=== PATIENT | male | born 1990 | race Caucasian/White ===

== ENCOUNTER 2024-09-12 14:59 | Outpatient (CLI) | payer OTHER, SELFPAY ==
--- NOTE | ~2024-09-12 | US_ITS ---
Ultrasound of the left lower extremity CLINICAL HISTORY: Area of palpable concern at the posterior left knee TECHNIQUE: Targeted sonographic imaging of the posterior left knee. Concern was performed. FINDINGS: No solid or cystic lesion identified. No sonographic abnormality seen in the region scanned . IMPRESSION: No sonographic abnormality seen at the area of concern in the posterior left knee. Consider cross-sec tional imaging for further evaluation as indicated. Reviewed, dictated and finalized at location M. IMPRESSION: No sonographic abnormality seen at the area of concern in the posterior left kn ee. Consider cross-sectional imaging for further evaluation as indicated.
== END 2024-09-12 15:00 | disposition home or self-care (01) ==
PROVIDERS: PCP Nurse Practitioner Family; Visit Provider Nurse Practitioner Family
DX: R22.42 Localized swelling, mass and lump, left lower limb (principal)
CPT/HCPCS: 76882

== ENCOUNTER 2024-11-07 01:20 | Day surgery (SDC) | payer OTHER, SELFPAY ==
[2024-10-31 16:00] VITALS: BMI 30.9
--- NOTE | 2024-10-31 16:47 | PC.NURSE ---
Report to the Outpatient Waiting Room, entrance under the green pavilion located off [facility], at 0630 on 11-07-24. Planned Procedure Time: 0830.? Time changes happen often and if your time is changed the preop area will call you the afternoon before. - You and your visitor will be asked to self-screen and do not enter if you have any COVID symptoms. Please call surgeon if you need to reschedule. - A mask is optional within the hospital at this time. Patients may have clear liquids (water, carbonated beverages, clear teas, apple juice) until 3 hours prior to surgery with a maximum of 20 ounces. 0530 - No food from midnight until time of surgery and no smoking, or chewing tobacco (or any form of nicotine). No chewing gum, candy or mints. - Infants may have breast milk until 4 hours before surgery, formula 6 hours prior to surgery. - Children will be allowed to drink immediately following surgery.? If applicable, please bring a bottle or sippy cup to assist with drinking. Juice, water, soda, and popsicles are readily available.? For infants on formula, please bring formula the day of surgery.? Pacifiers are allowed. Take only the following medications with a SIP of water on the morning of surgery: Tylenol if needed DO NOT STOP ANY OF YOUR OTHER PRESCRIPTION MEDICATIONS PRIOR TO SURGERY EXCEPT THE FOLLOWING Hold all vitamins and supplements for 3 days per anesthesiologist. 11-04-24 Please no make-up, nail divehi, hairspray, perfume, deodorant, or body powder the day of surgery.? No jewelry (including any body piercings) or valuables the day of surgery, leave them at home.? Please take a shower or bath the night before, or the morning of, surgery with an antibacterial soap.? Wear comfortable, loose fitting clothing.? Children are encouraged to wear pajamas. - Jewelry must be removed prior to entering the operating room.? Rings and piercings that are not removed may be cut off. - The hospital will not accept responsibility for valuables.? - Please leave all valuables, including medications, at home the day of surgery. If you are going home after surgery, a licensed service car driver must drive you home.? - NO public transportation without another adult if you receive anesthesia. - We recommend that an adult stay with you for 24 hours following discharge. - We also recommend that you do not drive, make important decision, drink alcoholic beverages, or take any drugs that were not prescribed by your health care provider for at least 24 hours after your discharge time. For Pediatric surgeries, we recommend two adults accompany the child home. Follow any additional instructions given to you from your surgeon. Telephone instructions given to Emre Valenzuela and asked if any additional questions and then verbalized understanding. Patient advised to call surgeon office or pre surgery nurse liaison [phone] if any additional questions.
--- NOTE | 2024-11-06 15:29 | PM.IMHP ---
H&P: HPI History of Present Illness Date/Time: 11/06/24 15:29 Chief Complaint: Recurrent tonsillitis snoring adenoid hypertrophy. Patient presents for planned surgical procedure. Review of Systems Review of Systems: All systems reviewed & are unremarkable except as noted in HPI and below PMFSH Past Medical History Medical History (Updated 10/19/24 @ 14:27 by Ruma Menezes NP) Left knee pain Localized swelling, mass and lump, left lower limb Enlarged tonsils Acute bronchitis Mild obstructive sleep apnea Chronic pain Sleep apnea Arthritis Surgical History Surgical History History of nasal surgery Hx of vasectomy 06/17/23 Family History Family History Father Heart disease Grandparent Heart disease Social History Social History Social History: Caffeine-daily Smoking packs per day: 0.5 Smoking cigarettes per day: 10.0 Years smoked: 5 Smoking pack-years: 2.50 Smoking status: Former smoker Tobacco type: cigarettes and smokeless tobacco Smokeless tobacco user: chewing tobacco Second hand tobacco smoke exposure: No Smoking end date: 04/06/14 Alcohol intake: current Alcohol use details: Rarely Substance use: never Substance use type: does not use Do You Feel Safe in your Home?: Yes Lack of Transportation: No Lack of Food: Never True Current Housing: I Have Housing Concerned About Future Housing: No Difficulty Paying Gas/Electric Bills: No Difficulty Paying for Meds: No Currently Unemployed: No Education: Associate Degree Difficulty w/ Childcare or Family Care: No Living arrangements: with family Spiritual care concerns: No Meds Home Medications and Allergies Home Medications ?Medication ?Instructions ?Recorded ?Confirmed ?Type acetaminophen 650 mg PO Q4-6H PRN pain 06/18/23 10/31/24 History vitamin B complex 1 tablet PO DAILY 06/18/23 10/31/24 History cholecalciferol (vitamin D3) 1,000 unit PO DAILY 06/22/24 10/31/24 History methocarbamol 2 tablet PO QID PRN pain 06/22/24 10/31/24 History Allergies Allergy/AdvReac Type Severity Reaction Status Date / Time amoxicillin Allergy Mild ANAPHYLAXIS Verified 10/31/24 15:58 Penicillins Allergy Unknown Skin Verified 10/31/24 15:58 Reaction Exam Narrative: Large tonsils large adenoids Assessment and Plan Assessment and plan (1) Sleep apnea: Code(s): G47.30 - Sleep apnea, unspecified Status: Acute (2) Mild obstructive sleep apnea: Code(s): G47.33 - Obstructive sleep apnea (adult) (pediatric) Status: Acute (3) Enlarged tonsils: Code(s): J35.1 - Hypertrophy of tonsils Status: Acute (4) Adenoid hypertrophy: Code(s): J35.2 - Hypertrophy of adenoids Status: Acute (5) Snoring: Code(s): R06.83 - Snoring Status: Acute (6) Recurrent tonsillitis: Code(s): J03.91 - Acute recurrent tonsillitis, unspecified Status: Acute Plan plan OR tonsillectomy adenoidectomy, extracapsular.For the recurrent tonsillitis and tonsillar hypertrophy sure decision was made to perform tonsillectomy and for the large adenoids adenoidectomy. Risks were discussed including bleeding infection damage to surrounding structures need for further procedures time off work time off school for 2 weeks afterwards. Postoperative bleeding round 5% for an adult with chronic tonsillitis. Chance of . Inherent risk of narcotic use.
[2024-11-07] VITALS (9 sets, daily range): BP systolic 109–141; BP diastolic 64–85; PULSE 56–82; RESP 12–18; TEMP 36.2–36.7; O2SAT 97–100; BMI 31.2
--- OUTSIDE RECORDS SUMMARY | 2024-11-07 01:33 | XMS_ITS | Referral Summary ---
Author Organization [facility] Address [address] [place] [address] Care Team Providers Care Gristmiller Name Role Phone Jasmine Garza MD Primary Care Provider [phone] Allergies Active Allergy Reactions Criticality Noted Date Comments Amoxicillin Anaphylaxis High 09/30/2018 Penicillin Other (See comments) Low 01/31/2022 Throat swelling Medications DULoxetine DR (CYMBALTA) 30 mg capsule 1 capsule (30 mg total) daily 11/22/2021 Active pregabalin (LYRICA) 75 mg capsule 2 (two) times a day 01/16/2022 Active acetaminophen (TYLENOL) 325 mg tablet Take 2 tablets (650 mg total) by mouth 3 (three) times a day Active diclofenac sodium (VOLTAREN) 1 % gel 12/31/2021 Active Active Problems Problem Noted Date Diagnosed Date Intervertebral disc stenosis of neural canal of lumbar region 02/18/2022 Lumbar radiculopathy 02/18/2022 Social History Tobacco Use Types Packs/Day Years Used Date Smoking Tobacco: Former Cigarettes Tobacco Cessation:Counseling Given: Not Answered AUDIT-C Answer Date Recorded Q1: How often do you have a drink containing alc ohol? Monthly or less 05/22/2022 Q2: How many drinks containi ng alcohol do you have on a typical day when you are drinking? 1 or 2 05/22/2022 Q3: How often do you have si x or more drinks on one occasion? Less than monthly 05/22/2022 Sex and Gender Information Value Date Recorded Sex Assigned at Not on file Legal Sex Male 8:20 AM CHIEF INNOVATION OFFICER Gender Identity Male 01/27/2022 2:03 PM CDT Sexual Orientation Straight 01/27/2022 2: 03 PM CDT Last Filed Vital Signs Vital Sign Reading Time Taken Comments Blood Pressure 141/63 05/22/2022 4:44 PM CHIEF INNOVATION OFFICER Pulse 74 05/22/2022 4:44 PM CHIEF INNOVATION OFFICER Temperature 36.6 C (97.8 F) 05/22/2022 3:28 PM CHIEF INNOVATION OFFICER Respiratory Rate 18 05/22/2022 4:44 PM CHIEF INNOVATION OFFICER Oxygen Saturation 96% 05/22/2022 4:44 PM CHIEF INNOVATION OFFICER Inhaled Oxygen Concentration - - Weight 84 kg (185 lb 3 oz) 03/30/2022 9:20 PM CS T Height 162.6 cm (5' 4) 03/30/2022 9:20 PM CHIEF INNOVATION OFFICER Body Mass Index 31.79 03/30/2022 9:20 PM CHIEF INNOVATION OFFICER Plan of Treatment Not on file Goals Goal Patient Goal Type Associated Problems Recent Progress Patient-Stated? Author CCM Chronic Pain Care Plan Chronic Care Management No change(05/22 3:29 PM CHIEF INNOVATION OFFICER) No Carol Steward, [place] Note: Problem: Chronic Pain Goals: 1. Minimize further functional decline 2. Maximize quality of life 3. Control pain Strategies: - Activity/exercise program recommendation - Conservative stepwise pain medicine strategy with multi-disciplinary approach - Recommend healthy lifestyle strategies and compensatory methods as needed Insurance [place] [facility] [place] [facility] [place] Sub[place] Plan / Payer (Ef fective 2014-Present) Name:Ryne Valenzuela Relation to Subscriber:Self Name:Ryne Valenzuela Payer ID:[id number] Group ID:Not on file Type:OTHER GOVERNMENT Address: [address] [place] [id number] [place] [facility] OFF[facility] CARE Care Teams Gristmiller Relationship Specialty Start Date End Date Jasmine Garza MD PCP - General Physical Medicine and Rehabilitation 01/06/22
--- OUTSIDE RECORDS SUMMARY | 2024-11-07 01:33 | XMS_ITS | Clinical Summary ---
Author Organization [facility] [employer] Address [address] [place] [address] Care Team Providers Care Rural Carrier Associate Name Role Phone Gianluca Davila MD Primary Care Provider [phone] Source Comments [facility] [employer],non-christian hospital Affiliates and Associated Physician Practices is amultiple site organization consisting of ambulatory clinics and hospital sitesin [place], [place], [place] and [place]. This disclosure is being madepursuant to the Care Everywhere program and may not contain all information available regarding this patient. Last updated 17.[facility] [employer] Allergies Active Allergy Reactions Criticality Noted Date Comments Amoxicillin Anaphylaxis High 09/30/2018 Medications * Be aware that medications may not be up to date on this document. Alwaysverify current medications with the patient. gabapentin (NEURONTIN) 300 MG capsule Take 300 mg by mouth 2 times daily Active triamcinolone acetonide (KENALOG) 0.1 % ointment Apply to affected area 3 times daily 80 g 09/21/2019 Active predniSONE (DELTASONE) 20 MG tablet Take 60 mg daily x 1 week, then 40 mg daily x 1 week, then 20 mg daily x 1 week. 42 tablet 09/21/2019 Active Family History Medical History Relation Name Comments Hypertension Father Diabetes - Type 2 Paternal Grandmother Relation Name Status Comments Father Alive Paternal Grandmother Social History Tobacco Use Types Packs/Day Years Used Date Smoking Tobacco: Former Cigarettes 0.3 3 2 010 - 2013 Smokeless Tobacco: Former Chew Quit: 2014 Tobacco Cessation:Counseling Given: Yes Alcohol Use Standard Drinks/Week Comments Yes 0 (1 standard drink = 0.6 oz pur e alcohol) occasionally Sex and Gender Information Value Date Recorded Sex Assigned at Not on file Legal Sex Male 4:06 PM CDT Gender Identity Not on file Sexual Orientation Not on file Last Filed Vital Signs Vital Sign Reading Time Taken Comments Blood Pressure 110/79 09/21/2019 3:39 PM CDT Pulse 73 09/21/2019 3:39 PM CDT Temperature 36.6 C (97.9 F) 09/21/2019 3:39 PM CDT Respiratory Rate 14 09/21/2019 3:39 PM CDT Oxygen Saturation 96% 09/21/2019 3:39 PM CDT Inhaled Oxygen Concentration - - Weight 81.6 kg (180 lb) 09/21/2019 3:39 PM CDT Height 162.6 cm (5' 4) 09/21/2019 3:39 PM CDT Body Mass Index 30.9 09/21/2019 3:39 PM CDT Plan of Treatment Health Maintenance Due Date Last Done Comments HIV SCREENING 2005 HEPATITIS C SCREENING 09/08/2008 DTAP/TDAP/TD VACCINES (1 - Tdap) 2009 HEPATITIS B VACCINE (1 of 3 - 19+ 3-dose series) 2009 HPV VACCINE (1 - 3-dose SCDM series) 2017 COVID-19 VACCINE (1 - 2023-2 5 season) 2023 DEPRESSION SCREENING 04/06/2024 INFLUENZA VACCINE (#1) 2024 ZOSTER VACCINE (1 of 2) 2040 HIB VACCINE Aged Out No longer eligi ble based on patient's age to complete this topic MENINGOCOCCAL (Group B) VACC INE SHARED DECISION-MAKING Aged Out No longer eligibl e based on patient's age to complete this topic MENINGOCOCCAL GROUPS A/C/Y/W VACCINE Aged Out No longer eligible b ased on patient's age to complete this topic PNEUMOCOCCAL VACCINE Aged Out No long er eligible based on patient's age to [place] [address] FORMERLY [facility], [facility] Care Teams Rural Carrier Associate Relationship Specialty Start Date End Date Gianluca Davila MD [address] [place], [place] [id number] PCP - General Family Medicine 09/30/18
--- OUTSIDE RECORDS SUMMARY | 2024-11-07 01:33 | XMS_ITS | Clinical Summary ---
Author Organization [facility] Address [address] [place] [address] Care Team Providers Care Market Development Manager Name Role Phone Jasmine Garza MD Primary Care Provider [phone] Allergies Active Allergy Reactions Criticality Noted Date [...] of lumbar region 02/18/2022 Lumbar radiculopathy 02/18/2022 Surgical History Surgery Date Site/Laterality Comments NASAL SEPTUM SURGERY 04/06/2008 - 04/05/2009 Medical History Medical History Date Comments Liver disorder Arthritis Muscle pain Irritability Low back pain Hip pain, bilateral Family History Medical History Relation Name Comments Chronic Pain Father Diabetes Father Heart disease Father Hypertension Father Chronic Pain Other Heart disease Other Diabetes Paternal Grandfather Heart disease Paternal Grandfather Relation Name Status Comments Father Other Paternal Grandfather Social History Tobacco Use Types Packs/Day Years [...] on file Legal Sex Male 8:20 AM [employer] MAINFRAME DEVELOPER Gender Identity Male 01/27/2022 2:03 PM CDT Sexual Orientation Straight 01/27/2022 2: 03 PM CDT Obstetrics History Last Filed Vital Signs Vital Sign Reading Time Taken Comments Blood Pressure 141/63 05/22/2022 4:44 PM IBM MAINFRAME DEVELOPER Pulse 74 05/22/2022 4:44 PM IBM MAINFRAME DEVELOPER Temperature 36.6 C (97.8 F) 05/22/2022 3:28 PM IBM MAINFRAME DEVELOPER Respiratory Rate 18 05/22/2022 4:44 PM IBM MAINFRAME DEVELOPER Oxygen Saturation 96% 05/22/2022 4:44 PM IBM MAINFRAME DEVELOPER Inhaled Oxygen Concentration - - Weight 84 kg (185 lb 3 oz) 03/30/2022 9:20 PM CS T Height 162.6 cm (5' 4) 03/30/2022 9:20 PM IBM MAINFRAME DEVELOPER Body Mass Index 31.79 03/30/2022 9:20 PM IBM MAINFRAME DEVELOPER Plan of Treatment Health Maintenance Due Date Last Done Comments Depression Screening 1990 Hepatitis C Screening 1990 Varicella Vaccines (1 of 2 - 13+ 2-dose series) 09/14/2003 Hepatitis B Screening 2008 Regular Well Visit/Exam 18-64 2008 HPV Vaccines (1 - 3-dose SCD M series) 2017 Covid-19 Vaccine (3 - 2023-2 5 season) 2023 11/27/2020, 11/03/2020 Influenza Vaccine (#1) 2024 01/13/2018 DTaP/Tdap/Td Vaccine (2 - Td or Tdap) 10/25/2030 10/25/2020 Pneumococcal vaccine <65 Aged Out No longer eligible based on patient's age to complete this topic Goals Goal Patient Goal Type Associated Problems Recent Progress Patient-Stated? Author CCM Chronic Pain Care Plan Chronic Care Management No change(05/22 3:29 PM IBM MAINFRAME DEVELOPER) Carol Mckay, [place] Note: Problem: Chronic Pain Goals: 1. Minimize further functional decline 2. Maximize quality of life 3. Control pain Strategies: - Activity/exercise program recommendation - Conservative stepwise pain medicine strategy with multi-disciplinary approach - Recommend healthy lifestyle strategies and compensatory methods as needed Insurance [facility] Care Teams Market Development Manager Relationship Specialty Start Date End Date Jasmine Garza MD PCP - General Physical Medicine and Rehabilitation 01/06/22
--- NOTE | 2024-11-07 07:23 | WPDHPUPDATE1 ---
History and Physical Update Update Date/Time: 11/07/24 07:23 History and Physical has been reviewed, including an updated exam of the patient. There are NO changes in the patient's condition. Risks, benefits, and alternatives have been discussed and questions answered. Patient agrees to proceed with procedure.
[2024-11-07] MEDS: ACETAMINOPHEN 500 MG TABLET 1000 MG PO (07:30)
[2024-11-07] MEDS: LACTATED RINGERS 1,000 ML 30 ML IV CONT (07:30)
--- NOTE | 2024-11-07 08:16 | P.PNAN_ITS ---
Anes - Initial Pre Proc Eval Procedure: Operation Date: 11/07/24 08:30 Proposed Procedures p Tonsillectomy And Adenoidectomy - Grzegorz Mejia MD Date/Time: 11/07/24 08:16 Surgeon: Grzegorz Meija MD Pre Op Diagnosis: chronic tonsillitis, hypertrophy of adenoids Patient Data Age: 34 Gender: M Height: 1.63 m Weight: 82.6 kg Last Vital Signs Temp 36.7 C 11/07/24 07:30 Pulse 62 11/07/24 07:30 BP 124/85 11/07/24 07:30 Pulse Ox 98 11/07/24 07:30 O2 Del Method Room Air 11/07/24 07:30 Allergies Allergy/AdvReac Type Severity Reaction Status Date / Time amoxicillin Allergy Mild ANAPHYLAXIS Verified 11/07/24 07:51 Penicillins Allergy Unknown Skin Verified 11/07/24 07:51 Reaction Home Medications ?Medication ?Instructions ?Recorded ?Confirmed ?Type acetaminophen 650 mg PO Q4-6H PRN pain 06/18/23 10/31/24 History vitamin B complex 1 tablet PO DAILY 06/18/23 10/31/24 History cholecalciferol (vitamin D3) 1,000 unit PO DAILY 06/22/24 10/31/24 History methocarbamol 2 tablet PO QID PRN pain 06/22/24 10/31/24 History Patient hx anesthesia problems: post op nausea/vomiting Family hx anesthesia problems: none Results Review: All pre-operative results and documents have been reviewed as part of the pre- operative evaluation. COUNT INCLUDES THE [facility] Past Medical History Medical History Left knee pain Localized swelling, mass and lump, left lower limb Enlarged tonsils Acute bronchitis Mild obstructive sleep apnea Chronic pain Sleep apnea Arthritis Surgical History Surgical History History of nasal surgery Hx of vasectomy 06/17/23 Family History Family History Father Heart disease Grandparent Heart disease Social History Social History Social History: Caffeine-daily Smoking status: Former smoker Tobacco type: cigarettes Smokeless tobacco user: chewing tobacco Smoking end date: 04/06/13 Alcohol intake: current Alcohol use details: rarely Substance use: never Do You Feel Safe in your Home?: Yes Lack of Transportation: No Lack of Food: Never True Current Housing: I Have Housing Concerned About Future Housing: No Difficulty Paying Gas/Electric Bills: No Difficulty Paying for Meds: No Currently Unemployed: No Education: Associate Degree Difficulty w/ Childcare or Family Care: No Anes - Eval Final PreProcedure Day of Procedure 11/07/24 08:16 Patient weight: obese Heart: regular rate and rhythm Lungs: clear to auscultation Airway: Mallampati scale class II Neurological: alert and oriented Last oral intake: >/= 8 hours ASA classification: III Emergent: no Anesthetic plan: proceed Anesthesia type and monitoring: general ETT and standard monitoring Results Review: All pre-operative results and documents have been reviewed as part of the pre- operative evaluation. Informed Consent: The patient's anesthetic plan and its attendant risks and benefits were discussed with the patient/family/POA. Questions were solicited and answers provided to the satisfaction of the patient/family/POA.
[2024-11-07] MEDS: SCOPOLAMINE 1 MG PATCH 1 PATCH TRANSDERM (08:26)
--- NOTE | 2024-11-07 08:46 | S_PTH ---
PATIENT: Ryne Valenzuela LOC: [facility] U#:[id number] AGE/SX: 34/M ROOM: RE11/07/[address]: Grzegorz Mejia MD : 1990 BED: DIS: 11/07/2024 SPEC #: [id number] RECD: 11/07/24 10:35 STATUS: TIFFANIE REQ #: [id number] MELI: 11/07/24 08:[address]: Grzegorz Mejia DEPT: [facility] Surgical RECD BY: Sybil Patino ENTERED: 11/07/24 10:35 SP TYPE: Surgical OTHR DR: Ruma Menezes APRN Tissues: A - Tonsils Procedures: Gross and Microscopic Level 2
--- NOTE | 2024-11-07 09:18 | W.PM.PROC2 ---
Procedure Note - Detailed Date of Procedure 11/07/24 Pre-op Diagnosis chronic tonsillitis Post-op Diagnosis Same Procedure Performed Tonsillectomy Surgeon Grzegorz Mejia MD Anesthesia General Indications See above Findings Incredibly large scarred in tonsils 5 cc of blood loss, burn to the uvula on the right side minor complication. Description of Procedure Patient identified consent verified the preoperative holding area. Patient brought to the operating. Time-out performed. General anesthesia induced endotracheal tube secured. Patient prepped draped position procedure confirmed 2nd time-out performed. McIvor mouth gag inserted to reveal tonsils described above. They were removed bilaterally in the extracapsular plane using Coblator setting media medium any bleeding was also controlled with Coblator on the cautery setting. In-between tonsils McIvor mouth gag lowered reopened allow blood flow to return to the tongue. Once the tonsils were out Anesthesia Valsalva to ensure no further bleeding. Red rubber catheters were inserted, soft palate suspended anteriorly, no adenoids, red rubber catheters removed. McIvor mouth gag removed. Care the patient back to Anesthesiology I performed all dictated portions procedure no complications patient taken to PACU blood loss 5 cc. Estimated Blood Loss 5 Drains No Packing No Pathology Yes Complications No immediate complications Condition Stable Disposition PACU [facility] Billing Surgery - Charge Forward: Surgery Billing
[2024-11-07] MEDS: fentaNYL CITRATE INJ (*CRX) 100 MCG/2 ML VIAL 25 MCG IV PUSH ×2 (09:50→10:00)
[2024-11-07] MEDS: oxyCODONE HCL (*CRX) 5 MG TAB IR PO (10:25)
== END 2024-11-07 11:13 | disposition home or self-care (01) ==
PROVIDERS: PCP Nurse Practitioner Family; Visit Provider Otolaryngology
PROC: (CPT 42826; principal; 2024-11-07 08:30)
DX: J35.01 Chronic tonsillitis (principal); G89.18 Other acute postprocedural pain; R06.83 Snoring; G47.33 Obstructive sleep apnea (adult) (pediatric); G89.29 Other chronic pain; M19.90 Unspecified osteoarthritis, unspecified site; F17.220 Nicotine dependence, chewing tobacco, uncomplicated; Z98.890 Other specified postprocedural states; E66.9 Obesity, unspecified; Z68.31 Body mass index [BMI] 31.0-31.9, adult; Z82.49 Family history of ischemic heart disease and other diseases of the circulatory system
CPT/HCPCS: 42826; 88302; A9270; J0330; J2250; J2405; J2704; J3010; J7120

== ENCOUNTER → 2024-11-10 10:00 | Outpatient (CLI) | payer OTHER, SELFPAY ==
--- NOTE | ~2024-11-10 | XR_ITS ---
Left Knee Technique: AP, lateral, and oblique views were obtained. Clinical History: Pain Findings: No fracture or dislocation is seen. Osseous alignment is anatomic. Joint spaces are preserv ed without degenerative or erosive change. Soft tissues are unremarkable. No joint effusion is seen. Impression: Unremarkable left knee radiographs. Reviewed, dictated and finalized at [facility]. Impression: Unremarkable left knee radiographs.
--- OUTSIDE RECORDS SUMMARY | 2024-11-10 10:13 | XMS_ITS | Continuity of Care Document ---
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 It does not include entries that were removed or entered in error. Problem Status Onset Date Problem Type Date of Resolution Comments Source Diarrhea Active Condition [facility] Hyperbilirubinemia Active Condition F eb 2021 Entered By: NATALIE STAHL Comment: 05/31/21 ultasound: stable gallbladder polyp no followup imaging indicated [facility] Hyperlipidemia (SCT 91379116) Active Condition [facility] Low Back Pain (SCT 192084483) Active Condition Mar 27, 2020 Entered By: NATALIE STAHL Comment: 02/13/12 lumbar mri: multilevel mild spondylosisNov 21, 2020 Entered By: NATALIE STAHL Comment: 11/21/20 normal bilateral lower extremity nerve conduction study [facility] OA - Osteoarthritis (SCT 642899561) Active Condition [facility] Obesity (SCT 257436952) Active Condition [facility] Past history of procedure Active Condition May 15, 2020 Entered By: NATALIE STAHL Comment: 2008 septoplasty (deviated septal repair)May 15, 2020 Entered By: NATALIE STAHL Comment: 2011 wisdom teeth extractions (2) [facility] Pes planus Active Condition [facility] Tinnitus (SCT 54091844) Active Condition [facility] Vitamin D Deficiency (SCT 5911281) Active Condition [facility] Vaccines Prophylactic Need Against Bacterial Diseases Inactive Condition [facility] NO PSYCHIATRIC DIAGNOSIS OR CONDITION ON AXIS I Inactive Condition [facility] lower back pain chronic Active Condition [facility] visit for: screening exam neurological disorders traumatic brain injury Inactive Condition [facility] PARESIS OF ACCOMMODATION Active Condition [facility] ASTIGMATISM - REGULAR Active Condition [facility] visit for: routine eye exam Inactive Condition [facility] INTERVERTEBRAL DISC DEGENERATION Active Condition [facility] BULGING INTERVERTEBRAL DISC Active Condition [facility] RADICULOPATHY Active Condition [facility] Patient Education - Self-Examination Of Skin Inactive Condition [facility] Patient Education - Alcohol Inactive Condition [facility] Patient Education - Self-Examination Of Testes Inactive Condition [facility] Anticipatory Guidance: Unsafe Sexual Practices Inactive Condition [facility] Patient Education - Dietary Inactive Condition DoD midback pain Active Condition [facility] NICOTINE DEPENDENCE Inactive Condition D oD visit: ears/hearing exam for hearing conservation, treatment Inactive Condition [facility] Other Physical Therapy Inactive Condition [facility] BACK STRAIN LUMBAR Inactive Condition Do D lower back pain Active Condition [facility] Back Muscle Spasm Active Condition [facility] HYPERLIPIDEMIA Active Condition Do[facility] visit for: ears / hearing exam Active Condition [facility] visit for: occupational health / fitness exam Inactive Condition [facility] Patient Education Inactive Condition [facility] UPPER RESPIRATORY INFECTION Inactive Condition [facility] visit for: administrative purpose Inactive Condition [facility] NORMAL PRE-EMPLOYMENT SCREENING EXAMINATION Inactive Condition [facility] Need For Vaccination Hepatitis A Inactive Condition [facility] Need For Vaccination Hepatitis B Inactive Condition [facility] Need For Vaccination Typhoid Inactive Condition [facility] visit for: potential organ / tissue donor Inactive Condition [facility] Need For Prophylactic Antibiotics Inactive Condition [facility] visit for: services physical Inactive Condition [facility] Diagnosis: ICD-10-CM M54.50 Low back pain, unspecified Active Diagnosis 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 Diagnosis: ICD-10-CM E55.9 Vitamin D deficiency, unspecified Active Diagnosis [facility] Diagnosis: ICD-10-CM Z30.09 Encounter for oth general cnsl and advice on contraception Active Diagnosis [facility] Diagnosis: ICD-10-CM G89.4 Chronic pain syndrome Active Diagnosis [facility] Medications Combined list of outpatient medications from Department of Defense and Veterans Affairs facilities.Medications provided include 1) outpatient medications from the last 15 months, and 2) patient-reported medications. Medication Details Route Status Patient Instructions Prescription Expires Prescription Number Last Dispense Date Ordering Provider Order Date Order Qty Source GABAPENTIN (U/D) 300 MG ORAL CAP TAKE ONE CAPSULE BY MOUTH AT BEDTIME FOR PAIN, SLEEP, ANXIETY 05/14/2024 [id number] ELISHAALFCY 2023 30 [facility] GABAPENTIN 300MG CAP TAKE ONE CAPSULE BY MOUTH AT BEDTIME ORAL ACTIVE 02/25/2025 [id number] DOMINIQUESAMEERAA Tulio 2023 30 [facility] GABAPENTIN 300MG CAP TAKE ONE CAPSULE BY MOUTH AT BEDTIME FOR PAIN, SLEEP, ANXIETY ORAL DISCONT INUED 05/14/2024 [id number] MAMIE KEBEDE 2023 30 [facility] KETOCONAZOL E 2 % TOP CREA [15GM] APPLY LIGHTLY TO AFFECTED AREA(S) TWICE A DAY FOR FUNGAL INFECTIO N (EXTERNA L USE ONLY) 08/25/2024 [id number] MADDY TOLEDO 2023 60 [facility] holly KETOCONAZOL E 2% CREAM,TOP APPLY LIGHTLY TO AFFECTED AREA(S) TWICE A DAY FOR FUNGAL INFECTIO N (EXTERNA L USE ONLY) TOPICA L 08/25/2024 [id number] HALEY TOLEDO 2023 60 [facility] METHOCARBAM [place] 500MG TAB TAKE 1-2 TABLETS BY MOUTH AT BEDTIME NEEDED FOR MUSCLE RELAXATI ON ORAL ACTIVE 05/19/2025 [id number] SUMIT MCCANN 2024 60 [facility] Triamcinolo ne Acetonide (Triamcinol one Acetonide Eq.) Cream .1% Topical APPLY LIGHTLY TO AFFECTED AREA(S) TWICE DAILY NEEDED FOR FOOT RASH (EXTERNA L USE ONLY) 08/25/2024 [id number] MADDY TOLEDO 2023 80 [facility] TRIAMCINOLO NE ACETONIDE 0.1% CREAM,TOP APPLY LIGHTLY TO AFFECTED AREA(S) TWICE DAILY NEEDED FOR FOOT RASH (EXTERNA L USE ONLY) TOPICA L 08/25/2024 [id number] HALEY TOLEDO [address] [place] [address] Allergies, Adverse Reactions, Alerts Combined list of allergies from Department of [facility] and Veterans Affairs facilities. It does not include entries that were removed or entered in error. Substance Category Reaction Severity Reaction type Status Date Reported Comments Source AMOXICILLIN Drug allergy (disorder) Unknown active 1 [facility] AMOXICILLIN Drug allergy (disorder) Throat swelling active 1 [facility] AMOXICILLIN Propensity to adverse reactions to drug (finding) Pharyngeal swelling active 1 [facility] PENICILLINS Drug allergy (disorder) Unknown active 1 [facility] Immunizations Combined list of available immunizations from the Department of [facility] and [facility] facilities. Immunization Series Date Given Administered By Site Reaction Lot Number CVX Code Drug Manager Park Status Comments Source INFLUENZA, INJECTABLE, QUADRIVALENT, PRESERVATIVE FREE 2023 FLEX ZARATE LEFT DELTO ID [id number] 150 complet ed Completed Series, [facility] COVID-19 (PFIZER), MRNA, LNP-S, PF, 30 MCG/0.3 ML DOSE 2 2020 208 complet ed [facility] INFLUENZA, UNSPECIFIED FORMULATION 2020 88 complet ed [facility] COVID-19 (PFIZER), MRNA, LNP-S, PF, 30 MCG/0.3 ML DOSE 1 2020 208 complet ed [facility] TDAP 1 2020 115 complet ed HISTORICA L INFORMATI ON - FROM OTHER REGISTRY, [facility] INFLUENZA, INJECTABLE, QUADRIVALENT, PRESERVATIVE FREE 2020 NONE 150 complet ed Completed Series, [facility] TDAP 02/09/ 2021 NONE 115 complet ed Completed Series, [facility] INFLUENZA, INJECTABLE, QUADRIVALENT, PRESERVATIVE FREE 1 2017 150 complet ed HISTORICA L INFORMATI ON - FROM OTHER REGISTRY, [facility] anthrax vaccine 5 2013 [id number] [employer] [place] (MIP) complet ed anthrax vaccine DoD anthrax vaccine 4 2013 [id number] [employer] [place] (MIP) complet ed anthrax vaccine DoD [place] Encephalitis vaccine for intramuscular administratio n 3 2012 [id number] 134 Merck (MSD) complet ed [place] Encephali tis vaccine for intramusc ular administr ation DoD Influenza, seasonal, injectable 0 2012 [id number] 141 7 [employer] (MED) complet ed Influenza , seasonal, injectabl e DoD anthrax vaccine 3 2012 [id number] 24 [employer] [place] ([facility]) complet ed anthrax vaccine DoD typhoid Vi capsular polysaccharid e vaccine 2 2012 [id number] Sanofi Pasteur (PMC) complet ed typhoid Vi capsular polysacch aride vaccine DoD influenza virus vaccine, live, attenuated, for intranasal use 0 2011 [id number] 111 7 [employer] (MED) complet ed influenza virus vaccine, live, attenuate d, for intranasa l use DoD [place] Encephalitis vaccine for intramuscular administratio n 2 2010 UNK 134 [employer] (INT) complet ed [place] Encephali tis vaccine for intramusc ular administr ation DoD influenza virus vaccine, live, attenuated, for intranasal use 0 2010 [id number] 111 Unknown (UNK) comple t ed influenza virus vaccine, live, attenuate d, for intranasa l use DoD anthrax vaccine 2 2010 [id number] (EBS) complet ed anthrax vaccine DoD vaccinia (smallpox) vaccine 0 2010 UNK 75 ([place]) complet ed vaccinia (smallpox ) vaccine DoD vaccinia (smallpox) vaccine 0 2010 [id number] 75 ([place]) complet ed vaccinia (smallpox ) vaccine DoD [place] Encephalitis vaccine for intramuscular administratio n 1 2010 [id number] 134 Sanofi Pasteur (PMC) complet ed [place] Encephali tis vaccine for intramusc ular administr ation DoD anthrax vaccine 1 2010 [id number] 24 [employer] [place] ([facility]) complet ed anthrax vaccine DoD typhoid Vi capsular polysaccharid e vaccine 1 2010 [id number] 1BA 101 [employer] (SKB) complet ed typhoid Vi capsular polysacch aride vaccine DoD hepatitis A and hepatitis B vaccine 3 2010 [id number] 1BA 104 [employer] (SKB) complet ed hepatitis A and hepatitis B vaccine DoD yellow fever vaccine 0 2010 [id number] 37 Sanofi Pasteur (PMC) complet ed yellow fever vaccine DoD poliovirus vaccine, inactivated 0 2009 [id number] 10 Sanofi Pasteur (PMC) complet ed polioviru s vaccine, inactivat ed DoD hepatitis A and hepatitis B vaccine 2 2009 [id number] 5BA 104 [employer] (SKB) complet ed hepatitis A and hepatitis B vaccine DoD pneumococcal polysaccharid e vaccine, 23 valent 0 2009 [id number] 33 Merck (MSD) complet ed pneumococ cecil polysacch aride vaccine, 23 valent DoD hepatitis A and hepatitis B vaccine 1 2009 [id number] 5AA 104 [employer] (SKB) complet ed hepatitis A and hepatitis B vaccine DoD influenza virus vaccine, live, attenuated, for intranasal use 0 2009 [id number] 111 Sanofi Pasteur (PMC) complet ed influenza virus vaccine, live, attenuate d, for intranasa l use DoD tetanus toxoid, reduced diphtheria toxoid, and acellular pertu is vaccine, adsorbed 0 2009 [id number] 115 [employer] (SKB) complet ed tetanus toxoid, reduced diphtheri a toxoid, and acellular pertussis vaccine, adsorbed DoD meningococcal oligosacchari de (groups A, C, Y and W-135) diphtheria toxoid conjugate vaccine (MCV4O) 0 2009 [id number] 136 Sanofi Pasteur (PMC) complet ed meningoco ccal oligosacc haride (groups A, C, Y and W-135) diphtheri a toxoid conjugate vaccine (MCV4O) DoD Results Combined list of recent chemistry, hematology and other laboratory results from Department of Defense and Veterans Affairs, ranging from 15 months to all on record, depending upon the facility. Order Name Results Value Reference Range Date Interpretation Specimen Comments Source METHADONE PANEL (STL) ETHANOL [MASS/VOLUM E] IN URINE Negati vemg/d L 0 - 20 07/14 Specimen Type: URINE Comment: The cut-off value for this test was laboratory developed and its performance characteris tics confirmed by the [facility] laboratory thru method comparison with reference laboratory and medication chart review. The laboratory is regulated under CLIA as qualified to perform high-comple xity testing. This test is used for clinical purposes in conjunction with other laboratory tests. Ordering Provider: SHWETA KEBEDE Report Released Date/Time: Jul 14, 2023 04:09 PM Reporting Lab: [facility] [place] [address] Performing Lab: [facility] METHADONE PANEL (STL) AMPHETAMINE [PRESENCE] IN URINE BY SCREEN METHOD Negati veng/m L 07/14 Specimen Type: URINE Comment: The cut-off value for this test was laboratory developed and its performance characteris tics confirmed by the [facility] laboratory thru method comparison with reference laboratory and medication chart review. The laboratory is regulated under CLIA as qualified to perform high-comple xity testing. This test is used for clinical purposes in conjunction with other laboratory tests. Ordering Provider: SHWETA KEBEDE Report Released Date/Time: Jul 14, 2023 04:09 PM Reporting Lab: [facility] [place] [address] Performing Lab: [facility] METHADONE PANEL (STL) BENZOYLECGO NINE [PRESENCE] IN URINE Negati veng/m L 07/14 Specimen Type: URINE Comment: The cut-off value for this test was laboratory developed and its performance characteris tics confirmed by the [facility] laboratory thru method comparison with reference laboratory and medication chart review. The laboratory is regulated under CLIA as qualified to perform high-comple xity testing. This test is used for clinical purposes in conjunction with other laboratory tests. Ordering Provider: SHWETA KEBEDE Report Released Date/Time: Jul 14, 2023 04:09 PM Reporting Lab: [facility] [place] [address] Performing Lab: [facility] METHADONE PANEL (STL) BENZODIAZEP DENNYS [PRESENCE] IN URINE BY SCREEN METHOD Negati veng/m L 07/14 Specimen Type: URINE Comment: The cut-off value for this test was laboratory developed and its performance characteris tics confirmed by the [facility] laboratory thru method comparison with reference laboratory and medication chart review. The laboratory is regulated under CLIA as qualified to perform high-comple xity testing. This test is used for clinical purposes in conjunction with other laboratory tests. Ordering Provider: SHWETA KEBEDE Report Released Date/Time: Jul 14, 2023 04:09 PM Reporting Lab: [facility] [place] [address] Performing Lab: [facility] METHADONE PANEL (STL) CANNABINOID S [PRESENCE] IN URINE BY SCREEN METHOD Negati veng/m L 07/14 Specimen Type: URINE Comment: The cut-off value for this test was laboratory developed and its performance characteris tics confirmed by the [facility] laboratory thru method comparison with reference laboratory and medication chart review. The laboratory is regulated under CLIA as qualified to perform high-comple xity testing. This test is used for clinical purposes in conjunction with other laboratory tests. Ordering Provider: SHWETA KEBEDE Report Released Date/Time: Jul 14, 2023 04:09 PM Reporting Lab: [facility] [place] [address] Performing Lab: [facility] METHADONE PANEL (STL) METHADONE [PRESENCE] IN URINE Negati veng/m L 07/14 Specimen Type: URINE Comment: The cut-off value for this test was laboratory developed and its performance characteris tics confirmed by the [facility] laboratory thru method comparison with reference laboratory and medication chart review. The laboratory is regulated under CLIA as qualified to perform high-comple xity testing. This test is used for clinical purposes in conjunction with other laboratory tests. Ordering Provider: SHWETA KEBEDE Report Released Date/Time: Jul 14, 2023 04:09 PM Reporting Lab: [facility] [place] [address] Performing Lab: [facility] METHADONE PANEL (STL) OPIATES [PRESENCE] IN URINE BY SCREEN METHOD Negati veng/m L 07/14 Specimen Type: URINE Comment: The cut-off value for this test was laboratory developed and its performance characteris tics confirmed by the [facility] laboratory thru method comparison with reference laboratory and medication chart review. The laboratory is regulated under CLIA as qualified to perform high-comple xity testing. This test is used for clinical purposes in conjunction with other laboratory tests. Ordering Provider: SHWETA KEBEDE Report Released Date/Time: Jul 14, 2023 04:09 PM Reporting Lab: [facility] [place] [address] Performing Lab: [facility] [place] [address] [place] [address] METHADONE PANEL (STL) CREATININE [MASS/VOLUM E] IN URINE 133.4 mg/dL 63.0 - 166.0 07/14 Specimen Type: URINE Comment: The cut-off value for this test was laboratory developed and its performance characteris tics confirmed by the [facility] laboratory thru method comparison with reference laboratory and medication chart review. The laboratory is regulated under CLIA as qualified to perform high-comple xity testing. This test is used for clinical purposes in conjunction with other laboratory tests. Ordering Provider: SHWETA KEBEDE Report Released Date/Time: Jul 14, 2023 04:09 PM Reporting Lab: [facility] [place] [address] Performing Lab: [facility] METHADONE PANEL (STL) OXYCODONE CUTOFF [MASS/VOLUM E] IN URINE FOR SCREEN METHOD Negati veng/m L 07/14 Specimen Type: URINE Comment: The cut-off value for this test was laboratory developed and its performance characteris tics confirmed by the [facility] laboratory thru method comparison with reference laboratory and medication chart review. The laboratory is regulated under CLIA as qualified to perform high-comple xity testing. This test is used for clinical purposes in conjunction with other laboratory tests. Ordering Provider: SHWETA KEBEDE Report Released Date/Time: Jul 14, 2023 04:09 PM Reporting Lab: [facility] [place] [address] Performing Lab: [facility] METHADONE PANEL (STL) BUPRENORPHI NE [PRESENCE] IN URINE Negati veng/m L 07/14 Specimen Type: URINE Comment: The cut-off value for this test was laboratory developed and its performance characteris tics confirmed by the [facility] laboratory thru method comparison with reference laboratory and medication chart review. The laboratory is regulated under CLIA as qualified to perform high-comple xity testing. This test is used for clinical purposes in conjunction with other laboratory tests. Ordering Provider: SHWETA KEBEDE Report Released Date/Time: Jul 14, 2023 04:09 PM Reporting Lab: [facility] [place] [address] Performing Lab: [facility] [address] METHADONE PANEL (STL) FENTANYL [PRESENCE] IN URINE Negati veng/m L 07/14 Specimen Type: URINE Comment: The cut-off value for this test was laboratory developed and its performance characteris tics confirmed by the [facility] laboratory thru method comparison with reference laboratory and medication chart review. The laboratory is regulated under CLIA as qualified to perform high-comple xity testing. This test is used for clinical purposes in conjunction with other laboratory tests. Ordering Provider: SHWETA KEBEDE Report Released Date/Time: Jul 14, 2023 04:09 PM Reporting Lab: [facility] [place] [address] Performing Lab: [facility] [facility] HGA1C HEMOGLOBIN A1C/HEMOGLO BIN.TOTAL IN BLOOD 5.0 4.0 - 6.0 07/14 Specimen Type: BLOOD No comment entered. Ordering Provider: CARINA LY Report Released Date/Time: May 28, 2023 03:36 PM Reporting Lab: [facility] [place] [address] Performing Lab: [facility] TSH (MA-PB) THYROTROPIN [UNITS/VOLU ME] IN SERUM OR PLASMA 1.814 u[IU]/ mL 0.470 - 5.000 07/14 Specimen Type: SERUM No comment entered. Ordering Provider: CARINA LY Report Released Date/Time: May 28, 2023 03:36 PM Reporting Lab: [facility] [place] [address] Performing Lab: [facility] COMPREHEN SIVE METABOLIC PANEL CREATININE [MASS/VOLUM E] IN SERUM OR PLASMA 0.95 mg/dL 0.70 - 1.30 07/14 Specimen Type: PLASMA Comment: No hemolysis noted. Ordering Provider: CARINA LY Report Released Date/Time: May 28, 2023 03:36 PM Reporting Lab: [facility] [place] [address] Performing Lab: [facility] COMPREHEN SIVE METABOLIC PANEL UREA NITROGEN [MASS/VOLUM E] IN SERUM OR PLASMA 13.1 mg/dL 9.0 - 25.0 07/14 Specimen Type: PLASMA Comment: No hemolysis noted. Ordering Provider: CARINA LY Report Released Date/Time: May 28, 2023 03:36 PM Reporting Lab: [facility] [place] [address] Performing Lab: [facility] COMPREHEN SIVE METABOLIC PANEL GLUCOSE [MASS/VOLUM E] IN SERUM OR PLASMA 136 mg/dL 72 - 99 07/14 H Specimen Type: PLASMA Comment: No hemolysis noted. Ordering Provider: CARINA LY Report Released Date/Time: May 28, 2023 03:36 PM Reporting Lab: [facility] [place] [address] Performing Lab: [facility] COMPREHEN SIVE METABOLIC PANEL SODIUM [MOLES/VOLU ME] IN SERUM OR PLASMA 142 meq/L 136 - 145 07/14 Specimen Type: PLASMA Comment: No hemolysis noted. Ordering Provider: CARINA LY Report Released Date/Time: May 28, 2023 03:36 PM Reporting Lab: [facility] [place] [address] Performing Lab: [facility] COMPREHEN SIVE METABOLIC PANEL POTASSIUM [MOLES/VOLU ME] IN SERUM OR PLASMA 4.0 meq/L 3.5 - 5.0 07/14 Specimen Type: PLASMA Comment: No hemolysis noted. Ordering Provider: CARINA LY Report Released Date/Time: May 28, 2023 03:36 PM Reporting Lab: [facility] [place] [address] Performing Lab: [facility] COMPREHEN SIVE METABOLIC PANEL CHLORIDE [MOLES/VOLU ME] IN SERUM OR PLASMA 104 meq/L 98 - 107 07/14 Specimen Type: PLASMA Comment: No hemolysis noted. Ordering Provider: CARINA LY Report Released Date/Time: May 28, 2023 03:36 PM Reporting Lab: [facility] [place] [address] Performing Lab: [facility] COMPREHEN SIVE METABOLIC PANEL CARBON DIOXIDE, TOTAL [MOLES/VOLU ME] IN SERUM OR PLASMA 29 meq/L 22 - 31 07/14 Specimen Type: PLASMA Comment: No hemolysis noted. Ordering Provider: CARINA LY Report Released Date/Time: May 28, 2023 03:36 PM Reporting Lab: [facility] [place] [address] Performing Lab: [facility] COMPREHEN SIVE METABOLIC PANEL CALCIUM [MASS/VOLUM E] IN SERUM OR PLASMA 9.7 mg/dL 8.4 - 10.4 07/14 Specimen Type: PLASMA Comment: No hemolysis noted. Ordering Provider: CARINA LY Report Released Date/Time: May 28, 2023 03:36 PM Reporting Lab: [facility] [place] [address] Performing Lab: [facility] [address] COMPREHEN SIVE METABOLIC PANEL PROTEIN [MASS/VOLUM E] IN SERUM OR PLASMA 7.4 g/dL 6.0 - 8.6 07/14 Specimen Type: PLASMA Comment: No hemolysis noted. Ordering Provider: CARINA LY Report Released Date/Time: May 28, 2023 03:36 PM Reporting Lab: [facility] [place] [address] Performing Lab: [facility] [address] COMPREHEN SIVE METABOLIC PANEL ALBUMIN [MASS/VOLUM E] IN SERUM OR PLASMA 4.5 g/dL 3.4 - 5.0 07/14 Specimen Type: PLASMA Comment: No hemolysis noted. Ordering Provider: CARINA LY Report Released Date/Time: May 28, 2023 03:36 PM Reporting Lab: [facility] [place] [address] Performing Lab: [facility] [address] COMPREHEN SIVE METABOLIC PANEL BILIRUBIN.T OTAL [MASS/VOLUM E] IN SERUM OR PLASMA 1.4 mg/dL 0.2 - 1.2 07/14 H Specimen Type: PLASMA Comment: No hemolysis noted. Ordering Provider: CARINA LY Report Released Date/Time: May 28, 2023 03:36 PM Reporting Lab: [facility] [place] [address] Performing Lab: [facility] [address] COMPREHEN SIVE METABOLIC PANEL ALKALINE PHOSPHATASE [ENZYMATIC ACTIVITY/VO LUME] IN SERUM OR PLASMA 97 U/L 40 - 150 07/14 Specimen Type: PLASMA Comment: No hemolysis noted. Ordering Provider: CARINA LY Report Released Date/Time: May 28, 2023 03:36 PM Reporting Lab: [facility] [place] [address] Performing Lab: [facility] [address] COMPREHEN SIVE METABOLIC PANEL ASPARTATE AMINOTRANSF ERASE [ENZYMATIC ACTIVITY/VO LUME] IN SERUM OR PLASMA 29 U/L 5 - 34 07/14 Specimen Type: PLASMA Comment: No hemolysis noted. Ordering Provider: CARINA YL Report Released Date/Time: May 28, 2023 03:36 PM Reporting Lab: [facility] [place] [address] Performing Lab: [facility] [address] COMPREHEN SIVE METABOLIC PANEL ALANINE AMINOTRANSF ERASE [ENZYMATIC ACTIVITY/VO LUME] IN SERUM OR PLASMA 36 U/L 8 - 40 07/14 Specimen Type: PLASMA Comment: No hemolysis noted. Ordering Provider: CARINA LY Report Released Date/Time: May 28, 2023 03:36 PM Reporting Lab: [facility] [place] [address] Performing Lab: [facility] [address] COMPREHEN SIVE METABOLIC PANEL GLOMERULAR FILTRATION RATE/1.73 SQ M.PREDICTED [VOLUME RATE/AREA] IN SERUM, PLASMA OR BLOOD BY CREATININE- BASED FORMULA (CKD-EPI 2020) 109.06 60 07/14 Specimen Type: PLASMA Comment: No hemolysis noted. Ordering Provider: CARINA LY Report Released Date/Time: May 28, 2023 03:36 PM Reporting Lab: [facility] [place] [address] Performing Lab: [facility] [address] CBC LEUKOCYTES [#/VOLUME] IN BLOOD BY AUTOMATED COUNT 8.6 10*3/u L 3.6 - 11.2 07/14 Specimen Type: BLOOD No comment entered. Ordering Provider: CARINA LY Report Released Date/Time: May 28, 2023 03:36 PM Reporting Lab: [facility] [place] [address] Performing Lab: [facility] [address] CBC ERYTHROCYTE S [#/VOLUME] IN BLOOD BY AUTOMATED COUNT 4.59 10*6/u L 4.10 - 5.70 07/14 Specimen Type: BLOOD No comment entered. Ordering Provider: CARINA LY Report Released Date/Time: May 28, 2023 03:36 PM Reporting Lab: [facility] [place] [address] Performing Lab: [facility] [address] CBC HEMOGLOBIN [MASS/VOLUM E] IN BLOOD 14.5 g/dL 13.1 - 16.8 07/14 Specimen Type: BLOOD No comment entered. Ordering Provider: CARINA LY Report Released Date/Time: May 28, 2023 03:36 PM Reporting Lab: [facility] [place] [address] Performing Lab: [facility] [address] CBC HEMATOCRIT [VOLUME FRACTION] OF BLOOD 41.0 38.2 - 48.4 07/14 Specimen Type: BLOOD No comment entered. Ordering Provider: CARINA LY Report Released Date/Time: May 28, 2023 03:36 PM Reporting Lab: [facility] [place] [address] Performing Lab: [facility] [facility] CBC MCV [ENTITIC VOLUME] BY AUTOMATED COUNT 89.3 fL 80.0 - 100.0 07/14 Specimen Type: BLOOD No comment entered. Ordering Provider: CARINA LY Report Released Date/Time: May 28, 2023 03:36 PM Reporting Lab: [facility] [place] [address] Performing Lab: [facility] [address] CBC MCH [ENTITIC MASS] BY AUTOMATED COUNT 31.6 pg 27.0 - 34.0 07/14 Specimen Type: BLOOD No comment entered. Ordering Provider: CARINA LY Report Released Date/Time: May 28, 2023 03:36 PM Reporting Lab: [facility] [place] [address] Performing Lab: [facility] [address] CBC MCHC [MASS/VOLUM E] BY AUTOMATED COUNT 35.4 g/dL 33.0 - 36.0 07/14 Specimen Type: BLOOD No comment entered. Ordering Provider: CARINA LY Report Released Date/Time: May 28, 2023 03:36 PM Reporting Lab: [facility] [place] [address] Performing Lab: [facility] [address] CBC PLATELETS [#/VOLUME] IN BLOOD BY AUTOMATED COUNT 212 10*3/u L 150 - 400 07/14 Specimen Type: BLOOD No comment entered. Ordering Provider: CARINA LY Report Released Date/Time: May 28, 2023 03:36 PM Reporting Lab: [facility] [place] [address] Performing Lab: [facility] [address] CBC PLATELET MEAN VOLUME [ENTITIC VOLUME] IN BLOOD BY AUTOMATED COUNT 9.2 fL 7.5 - 11.2 07/14 Specimen Type: BLOOD No comment entered. Ordering Provider: CARINA LY Report Released Date/Time: May 28, 2023 03:36 PM Reporting Lab: [facility] [place] [address] Performing Lab: [facility] [address] CBC ERYTHROCYTE DISTRIBUTIO N WIDTH [RATIO] BY AUTOMATED COUNT 12.1 11.8 - 15.1 07/14 Specimen Type: BLOOD No comment entered. Ordering Provider: CARINA LY Report Released Date/Time: May 28, 2023 03:36 PM Reporting Lab: [facility] [place] [address] Performing Lab: [facility] [address] CBC LYMPHOCYTES /100 LEUKOCYTES IN BLOOD BY AUTOMATED COUNT 07/14 Specimen Type: BLOOD No comment entered. Ordering Provider: CARINA LY Report Released Date/Time: May 28, 2023 03:36 PM Reporting Lab: [facility] [place] [address] Performing Lab: [facility] [address] CBC MONOCYTES/1 00 LEUKOCYTES IN BLOOD BY AUTOMATED COUNT 07/14 Specimen Type: BLOOD No comment entered. Ordering Provider: CARINA LY Report Released Date/Time: May 28, 2023 03:36 PM Reporting Lab: [facility] [place] [address] Performing Lab: [facility] [place] [id number] CBC NEUTROPHILS /100 LEUKOCYTES IN BLOOD BY AUTOMATED COUNT 65 07/14 Specimen Type: BLOOD No comment entered. Ordering Provider: CARINA LY Report Released Date/Time: May 28, 2023 03:36 PM Reporting Lab: [facility] [place] [address] Performing Lab: [facility] [address] CBC EOSINOPHILS /100 LEUKOCYTES IN BLOOD BY AUTOMATED COUNT 3 07/14 Specimen Type: BLOOD No comment entered. Ordering Provider: CARINA LY Report Released Date/Time: May 28, 2023 03:36 PM Reporting Lab: [facility] [place] [address] Performing Lab: [facility] [address] CBC BASOPHILS/1 00 LEUKOCYTES IN BLOOD BY AUTOMATED COUNT 0 07/14 Specimen Type: BLOOD No comment entered. Ordering Provider: CARINA LY Report Released Date/Time: May 28, 2023 03:36 PM Reporting Lab: [facility] [place] [address] Performing Lab: [facility] [address] CBC LYMPHOCYTES [#/VOLUME] IN BLOOD BY AUTOMATED COUNT 1.90 10*3/u L 0.77 - 4.50 07/14 Specimen Type: BLOOD No comment entered. Ordering Provider: CARINA LY Report Released Date/Time: May 28, 2023 03:36 PM Reporting Lab: [facility] [place] [address] Performing Lab: [facility] [address] CBC MONOCYTES [#/VOLUME] IN BLOOD BY AUTOMATED COUNT 0.78 10*3/u L 0.19 - 0.80 07/14 Specimen Type: BLOOD No comment entered. Ordering Provider: CARINA LY Report Released Date/Time: May 28, 2023 03:36 PM Reporting Lab: [facility] [place] [address] Performing Lab: [facility] [address] CBC NEUTROPHILS [#/VOLUME] IN BLOOD BY AUTOMATED COUNT 5.57 10*3/u L 2.10 - 8.00 07/14 Specimen Type: BLOOD No comment entered. Ordering Provider: CARINA LY Report Released Date/Time: May 28, 2023 03:36 PM Reporting Lab: [facility] [place] [address] Performing Lab: [facility] [address] CBC EOSINOPHILS [#/VOLUME] IN BLOOD BY AUTOMATED COUNT 0.27 10*3/u L 0.00 - 0.60 07/14 Specimen Type: BLOOD No comment entered. Ordering Provider: CARINA LY Report Released Date/Time: May 28, 2023 03:36 PM Reporting Lab: [facility] [place] [address] Performing Lab: [facility] [address] CBC BASOPHILS [#/VOLUME] IN BLOOD BY AUTOMATED COUNT 0.02 10*3/u L 0.00 - 0.20 07/14 Specimen Type: BLOOD No comment entered. Ordering Provider: CARINA LY Report Released Date/Time: May 28, 2023 03:36 PM Reporting Lab: [facility] [place] [address] Performing Lab: [facility] [place] [id number] LIPID PANEL (STL) CHOLESTEROL [MASS/VOLUM E] IN SERUM OR PLASMA 215 mg/dL 0 - 200 07/14 H Specimen Type: PLASMA Comment: No hemolysis noted. Ordering Provider: CARINA LY Report Released Date/Time: May 28, 2023 03:36 PM Reporting Lab: [facility] [place] [address] Performing Lab: [facility] [address] LIPID PANEL (L) TRIGLYCERID E [MASS/VOLUM E] IN SERUM OR PLASMA 227 mg/dL 0 - 150 07/14 H Specimen Type: PLASMA Comment: No hemolysis noted. Ordering Provider: CAIRNA LY Report Released Date/Time: May 28, 2023 03:36 PM Reporting Lab: [facility] [place] [address] Performing Lab: [facility] [address] LIPID PANEL (L) CHOLESTEROL IN LDL [MASS/VOLUM E] IN SERUM OR PLASMA BY CALCULATION 135 mg/dL 07/14 Specimen Type: PLASMA Comment: No hemolysis noted. Ordering Provider: CARINA LY Report Released Date/Time: May 28, 2023 03:36 PM Reporting Lab: [facility] [place] [address] Performing Lab: [facility] [address] LIPID PANEL (STL) CHOLESTEROL IN HDL [MASS/VOLUM E] IN SERUM OR PLASMA 35 mg/dL 40 07/14 L Specimen Type: PLASMA Comment: No hemolysis noted. Ordering Provider: CARINA LY Report Released Date/Time: May 28, 2023 03:36 PM Reporting Lab: [facility] [place] [address] Performing Lab: [facility] [address] VITAMIN D, 25-HYDROX Y 25-HYDROXYV ITAMIN D3 [MASS/VOLUM E] IN SERUM OR PLASMA 29.8 ng/mL 30 - 96 07/14 L Specimen Type: SERUM No comment entered. Ordering Provider: CARINA LY Report Released Date/Time: May 28, 2023 03:36 PM Reporting Lab: [facility] [place] [address] Performing Lab: [facility] [address] B12 COBALAMIN (VITAMIN B12) [MASS/VOLUM E] IN SERUM OR PLASMA 415 pg/mL 213 - 816 07/14 Specimen Type: SERUM No comment entered. Ordering Provider: CARINA LY Report Released Date/Time: May 28, 2023 03:36 PM Reporting Lab: [facility] [place] [address] Performing Lab: [facility] [address] Vital Signs Combined list of inpatient and outpatient Vital Signs from Department of Defense and Veterans Affairs, ranging from 12 months to all on record, depending upon the facility. Vital Sign Value Date Comments Source SYSTOLIC BLOOD PRESSURE 107 12/01/2023 14:19:01 [facility] DIASTOLIC BLOOD PRESSURE 72 12/01/2023 14:19:01 [facility] PULSE OXIMETRY 97 12/01/2023 14:19:01 [facility] WEIGHT 184 12/01/2023 14:19:01 [facility] BMI 32 kg/m2 12/01/2023 14:19:01 [facility] PAIN 3 12/01/2023 14:19:01 [facility] HEIGHT 64 12/01/2023 14:19:01 [facility] TEMPERATURE 98.4 12/01/2023 14:19:01 [facility] PULSE 72 12/01/2023 14:19:01 [facility] RESPIRATION 18 12/01/2023 14:19:01 [facility] Encounters Combined list of: 1) Encounters from Department of Veterans Affairs facilities going backup to the last 18 months, not all VA inpatient encounters are included; 2) Encounters from the Department of Defense facilities going backup to 280 months. Location Location Details Encounter Type Encounter Number Reason For Visit Attending Provider ADM Date DC Date Status Disposition Source [facility] D Optometry ) OUTPATIENT [id number] recruit exam WIL JAIME 02/20 Released w/o Limitations [facility](M CRD Optomet ry) [facility](MCR D Recruit Sick Call) OUTPATIENT [id number] PATSeptember R. 03/14 Released w/o Limitations [facility](M CRD Recruit Sick Call) [facility](MCR D Recruit Sick Call) OUTPATIENT [id number] September R. 03/21 Released w/o Limitations [facility](M CRD Recruit Sick Call) [facility] D Recruit Sick Call) [facility] [id number] [facility]. [facility] w/o Limitations [facility] Recruit Sick Call) [facility] D Recruit Sick Call) [facility] [id number] [facility]/10 Released w/o Limitations [facility] CRD Recruit Sick Call) [facility] [place] , [place]([facility]) OUTPATIENT [id number] KARMEN Leslie 06/03 Released w/o Limitations [place] [facility] Amparo kim([facility]- [place]) OUTPATIENT [id number] [place] JAZMÍN Brown 09/04 Released w/o Limitations [facility] [place]) [place]) OUTPATIENT [id number] (clb 4) adminis JAIMEE Camacho 10/11 Released w/o Limitations [place]) [place]) OUTPATIENT [id number] HEADACH E/BETZAIDA ROBLES (H&HS) DEMOND DEE 03/04 Released with Work/Duty Limitations [place] [place](O ccupation al Medicine) OUTPATIENT [id number] 720,,,, ,[place] RENEE BILLINGSLEY 03/31 Released w/o Limitations [place] ([facility]) [place](H earing [facility] ion) OUTPATIENT [id number] 503,,,, ,[place] NIKOLAS DOYLE 04/01 [place]ased w/o Limitations [facility] ([facility]earin g Conserv ation) [place](O ccupation al Medicine) OUTPATIENT [id number] 720,,,, ,PJM CINDY CARRERO 04/09 Released w/o Limitations [place] ([facility]up[facility] Medicin [facility]) [place]) OUTPATIENT [id number] BACK PAIN,xL AST WEEK (H&HS) JENNIFER MUNIZ 07/13 Released with Work/Duty Limitations [place] [place]) OUTPATIENT [id number] F/U BACK PAIN (H&HS) JENNIFER MUNIZ 07/19 Released with Work/Duty Limitations [place] [place]) OUTPATIENT [id number] Notes Entered by: KARMEN CARRERO 22 Jul 2011 0938 ------- ------- ------- ------- -- BOBBY- Low Back JAVED SALMON 07/21 Released with Work/Duty Limitations [place] [place] OUTPATIENT [id number] Notes Entered by: VERO WILEY 05 Aug 2011 0728 ------- ------- ------- ------- -- MAW - Lower Back JENNY JOELLE K 08/03 Released with Work/Duty Limitations [place] [place] OUTPATIENT [id number] lower back pain SHARMILA UMANZOR [place] 08/25 Released w/o Limitations [place] [place] OUTPATIENT [id number] DIANA JOHNS 09/01 Released w/o Limitations [place] [place]) OUTPATIENT [id number] BECCA ÁLVAREZ 09/04 Released w/o Limitations [place]) [place] OUTPATIENT [id number] SANTOS DOMINGUEZ 09/06 Released w/o Limitations [place] [place] OUTPATIENT [id number] MAKI GRAJEDA 09/08 Released w/o Limitations [place] [facility] [place]) OUTPATIENT [id number] SVEN OHARA 09/13 Released w/o Limitations [place] [place]) OUTPATIENT [id number] SVEN OHARA 09/15 Released w/o Limitations [place] [place]) OUTPATIENT [id number] Notes Entered by: ERICH ESPINOZA 17 Sep 2011 1045 ------- ------- ------- ------- -- HC TRAININ G (H&HS) [place]ION [place] 09/16 Released w/o Limitations [place] [place]) OUTPATIENT [id number] F/U BACK PAIN (H&HS) JENNIFER MUNIZE 09/23 Released w/o Limitations [place] [place]) OUTPATIENT [id number] Back Pain (H&HS) CIERA GALICIAQUE 09/29 Released with Work/Duty Limitations [place] [place]) OUTPATIENT [id number] RE-EVAL OF BACK PROBLEM (H&HS) [place] 10/20 Released with Work/Duty Limitations [place] [place] OUTPATIENT [id number] SHARMILA UMANZOR 10/21 Released w/o Limitations [place] [place] OUTPATIENT [id number] LBP SVEN OHARA 10/25 Released w/o Limitations [place] [place] OUTPATIENT [id number] SVEN OHARA 10/27 Released w/o Limitations [place] [place]) OUTPATIENT [id number] SVEN OHARA 11/01 Released w/o Limitations [place] [place] OUTPATIENT [id number] SVEN OHARA 11/05 Released w/o Limitations [place] [place]) OUTPATIENT [id number] MAKI GRAJEDA 11/12 Released w/o Limitations [place] [place] OUTPATIENT [id number] SVEN OHARA 11/19 Released w/o Limitations [facility] ) [facility](P hysical Therapy Clinic) OUTPATIENT [id number] [facility] ED2 ABAD TRAN 11/23 Released w/o Limitations [facility] (Physic al Therapy Clinic) [facility]) OUTPATIENT [id number] MED REFILL ([facility]) LIZZIE GONZALEZ 01/06 Released w/o Limitations [facility] ([facility]) [facility]) OUTPATIENT [id number] VELVET BLANCO 01/08 Released w/o Limitations [facility] ([facility]) [facility]) OUTPATIENT [id number] SEVERE BACKPAI N ([facility]) [facility] LION RAPHAEL 01/19 Released w/o Limitations [facility] ([facility]) [facility]) OUTPATIENT [id number] AANE SCREENI NG/ARMO RY (H[facility]HS) [facility] Released w/o Limitations [facility] ([facility]) [facility]) OUTPATIENT [id number] F/U MRI RESULT- BACK (H[facility]HS) [facility] 02/16 Released with Work/Duty Limitations [facility] ([facility](E vans Physical Therapy) OUTPATIENT [id number] low back pain with radicul opathy [place] 03/15 Released w/o Limitations [facility] ([facility] ) [facility](P ain Managemen t Clinic) OUTPATIENT [id number] low back pain with radicul opathy TYLOR AVELAR R 03/17 Released w/o Limitations [facility] (Pain Managem ent Clinic) [facility](E vans Physical Therapy) OUTPATIENT [id number] SANTOS DOMINGUEZ 03/22 Released w/o Limitations [place] [place]) OUTPATIENT [id number] F/U LIMITED DUTY-BA CK (H&HS) LION [place]OCK 03/23 Released with Work/Duty Limitations [place] [place]) OUTPATIENT [id number] SVEN OHARA 04/05 Released w/o Limitations [place] [place]) OUTPATIENT [id number] WILLY MILLER 04/07 Released w/o Limitations [place] [place]) OUTPATIENT [id number] WILLY MILLER 04/12 [place]ased w/o Limitations [place]) OUTPATIENT [id number] F/U LIMITED DUTY (H&HS) [place] 04/13 Released w/o Limitations [place] [place]) OUTPATIENT [id number] SVEN OHARA 04/14 Released w/o Limitations [place] [place] OUTPATIENT [id number] [facility] [place] 04/15 Released w/o Limitations [place] [facility] OUTPATIENT [id number] [phone] LEONARD JOEL 07/12 [place]ased w/o Limitations [email or web address]) [facility]) OUTPATIENT [id number] BACK PAIN ([facility]) LALO PHILLIPS 08/17 Released w/o Limitations [place] [place]) OUTPATIENT [id number] F/U BACK ADJUSTM ENT (H&HS) LALO PHILLIPS 08/31 Released w/o Limitations [facility] ([facility]) [facility](He aring Conserv-B 65) OUTPATIENT [id number] SAM FERREIRA 12/07 Released w/o Limitations [facility]( Hearing Conserv -B65) [facility] ) OUTPATIENT [id number] 04/18/19 14 PRE/JESUSROMELIA ALMAZAN 04/19 Released w/o Limitations [facility]( [facility]) OUTPATIENT [id number] Notes Entered by: ISABEL LANGE 02 Jun 2013 0808 ------- ------- ------- ------- -- Back Pain COURTNEY PHAM 06/01 Released w/o Limitations [facility] ([facility]) [facility]) OUTPATIENT [id number] Notes Entered by: ISABEL LANGE 08 Jun 2013 0928 ------- ------- ------- ------- -- F/U back pain COURTNEY PHAM 06/08 Released w/o Limitations [facility] ([facility]) [facility] [facility] OUTPATIENT [id number] Notes Entered by: ISABEL LANGE 14 Jun 2013 0839 ------- ------- ------- ------- -- F/U Back Pain WILLY IBANEZ 06/13 Released w/o Limitations Formerly [facility] ([facility]) Formerly [facility]) OUTPATIENT [id number] Notes Entered by: CHRIS GRIJALVA 15 Jun 2013 1459 ------- ------- ------- ------- -- lower back injury COURTNEY PHAM 06/15 Released w/o Limitations Formerly [facility] ([facility]) Formerly [facility]) OUTPATIENT [id number] Notes Entered by: ISABEL LANGE 21 Jun 2013 0922 ------- ------- ------- ------- -- f/u back pain COURTNEY PHAM 06/21 Released w/o Limitations Formerly [facility] ([facility]) Formerly [facility] OUTPATIENT [id number] Chronic lower back pain AVELARTYLOR 07/14 Released w/o Limitations Formerly [facility] ([facility]) Formerly [facility]) OUTPATIENT [id number] Notes Entered by: KATHLEEN MONTEZ 04 Oct 2013 1701 ------- ------- ------- ------- -- FABIAN Martinez 10/04 Released w/o Limitations Formerly [facility] ([facility]) Formerly [facility]) OUTPATIENT [id number],,,, ,JAW LYSSA CONTRERAS 10/21 Released w/o Limitations Formerly [facility] ([facility]) Formerly [facility]) OUTPATIENT [id number],,,, ,TAWNY Sanchez 10/25 Released w/o Limitations Formerly [facility] ([facility]) Formerly [facility]) OUTPATIENT [id number] FINAL COURTNEY YUN 10/25 Released w/o Limitations Formerly [facility] ([facility]) [facility] PSYTX W PT 30 MINUTES [id number] Diagnos is: ICD-10- CM G89.4 Chronic pain syndrom e REJI GONZALEZ ADRIANA Armando 04/15 [facility] Outpatient Encounter [id number] 05/05 [facility] OFFICE O/P EST LOW 20 MIN [id number] Diagnos is: ICD-10- CM M54.51 Vertebr ogenic low back pain ELISHAVÍCTORBetzaida,CAR OL 05/14 [facility] OFFICE O/P NEW LOW 30 MIN [id number] Diagnos is: ICD-10- CM Z30.09 Encount er for oth general cnsl and advice on contrac eption RAQUEL BRAGG MA 05/18 [facility] Outpatient Encounter [id number] VIRGILIO ZARATE M 05/27 [facility] OFFICE O/P EST LOW 20 MIN [id number] Diagnos is: ICD-10- CM E55.9 Vitamin D deficie ncy, unspeci fied ALIYAH,CH IDIMMA N 05/28 [facility] Outpatient Encounter [id number] 06/08 [facility] Outpatient Encounter [id number] 06/16 [facility] OFFICE O/P EST MOD 30 MIN [id number] Diagnos is: ICD-10- CM B07.0 Plantar wart YANDY,CAR OL 07/14 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 SUMIT SALCIDO 11/30 [facility] Outpatient Encounter [id number] 02/11 [facility] Outpatient Encounter [id number] 05/06 [facility] PH1 ASSMT&MGMT NQHP 5-10 [id number] Diagnos is: ICD-10- CM M54.51 Vertebr ogenic low back pain ZANE BESS 05/17 [facility] PT EDUCATION NOC INDIVID [id number] Diagnos is: ICD-10- CM M54.50 Low back pain, unspeci fied NINA CAT SA 06/09 [facility] Outpatient Encounter [id number] 07/05 [facility] Procedures Combined list of: 1) Procedures from Department of Veterans Affairs facilities going back up to thelast 18 months, not all VA non-surgical procedures are included; 2) All procedures from the Department of Defense facilities. Procedure Procedure Type Code Date Perfomer Comments Sourc e TYPHOID VACCINE, CAPSULAR POLYSACCHARIDE (VICPS), FOR INTRAMUSCULAR USE 2010 [facility] NEUROPSYCHOLOGICAL TESTING (EG, [place] CARD SORTING TEST), ADMINISTERED BY A COMPUTER, WITH QUALIFIED HEALTH MARKETING ENGINEER INTERPRETATION AND REPORT 2013 [facility] PATIENT EDUCATION, NOT OTHERWISE CLASSIFIED, NON-PHYSICIAN PROVIDER, GROUP, PER SESSION 2012 [facility] ORAL MEDICATION ADMINISTRATION, DIRECT OBSERVATION 2010 [facility] THERAPEUTIC, PROPHYLACTIC, OR DIAGNOSTIC INJECTION (SPECIFY SUBSTANCE OR DRUG); SUBCUTANEOUS OR INTRAMUSCULAR 2010 [facility] IMMUNIZATION ADMINISTRATION (INCLUDES PERCUTANEOUS, INTRADERMAL, SUBCUTANEOUS, OR INTRAMUSCULAR INJECTIONS); 1 VACCINE (SINGLE OR COMBINATION VACCINE/TOXOID) 2009 [facility] ORAL MEDICATION ADMINISTRATION, DIRECT OBSERVATION 2009 [facility] DIPHTHERIA, TETANUS TOXOIDS, AND ACELLULAR PERTUSSIS VACCINE (DTAP), WHEN ADMINISTERED TO INDIVIDUALS YOUNGER THAN 7 YEARS, FOR INTRAMUSCULAR USE 2009 [facility] ORAL MEDICATION ADMINISTRATION, DIRECT OBSERVATION 2009 [facility] ORAL MEDICATION ADMINISTRATION, DIRECT OBSERVATION 2009 [facility] PURE TONE AUDIOMETRY (THRESHOLD); AIR ONLY 2009 [facility] VIS FUNCT SCREEN,AUTOMAT/SEMI- AUTOMAT BILAT QUANT DETERM VISUAL ACUITY,OCULAR ALIGN,COLOR VISION,PSEUDOISOCHRO MAT PLATES,& FIELD VIS (MAY INC ALL/SOME SCRN DETERM FOR CONTRAST SENSITIV,VIS UND GLARE) 2009 [facility] AUDIOMETRIC TESTING OF GROUPS 2013 [facility] PATIENT EDUCATION, NOT OTHERWISE CLASSIFIED, NON-PHYSICIAN PROVIDER, GROUP, PER SESSION 2013 [facility] ANTHRAX VACCINE, FOR SUBCUTANEOUS OR INTRAMUSCULAR USE 2013 [facility] INJECTION, TRIAMCINOLONE ACETONIDE, NOT OTHERWISE SPECIFIED, [address] [facility] PSYCHIATRIC DIAGNOSTIC EVALUATION WITH MEDICAL SERVICES 2013 [facility] OSTEOPATHIC MANIPULATIVE TREATMENT (OMT); 3-4 BODY REGIONS INVOLVED 2012 [facility] OSTEOPATHIC MANIPULATIVE TREATMENT (OMT); 3-4 BODY REGIONS INVOLVED 2012 [facility] FITTING OF SPECTACLES, EXCEPT FOR APHAKIA; MONOFOCAL 2012 [facility] PHYSICAL THERAPY RE-EVALUATION 2012 [facility] APPLICATION OF A MODALITY TO 1 OR MORE AREAS; TRACTION, MECHANICAL 2012 [facility] THERAPEUTIC PROCEDURE, 1 OR MORE AREAS, EACH 15 MINUTES; THERAPEUTIC EXERCISES TO DEVELOP STRENGTH AND ENDURANCE, RANGE OF MOTION AND FLEXIBILITY 2012 [facility] APPLICATION OF A MODALITY TO 1 OR MORE AREAS; TRACTION, MECHANICAL 2012 [facility] APPLICATION OF A MODALITY TO 1 OR MORE AREAS; TRACTION, MECHANICAL 2011 [facility] APPLICATION OF A MODALITY TO 1 OR MORE AREAS; TRACTION, MECHANICAL 2011 [facility] INJECT(S),OF DIAG/THER SUBS(S) (INCLD ANES,ANTISPASMODIC,O PIOID,STEROID,OTH JARED),NOT INCLD NEUROLYTIC SUB,INCLD NEEDLE/CATH PLCMNT,INCLDS CONT FOR LOCALIZATION WHEN PERFORM,EPIDUR/SUBAR ACH;LUMB/SAC 2011 [facility] THERAPEUTIC PROCEDURE, 1 OR MORE AREAS, EACH 15 MINUTES; THERAPEUTIC EXERCISES TO DEVELOP STRENGTH AND ENDURANCE, RANGE OF MOTION AND FLEXIBILITY 2011 [facility] SCREENING TEST OF VISUAL ACUITY, QUANTITATIVE, BILATERAL 2011 [facility] PHYSICAL THERAPY RE-EVALUATION 2011 [facility] THERAPEUTIC PROCEDURE, 1 OR MORE AREAS, EACH 15 MINUTES; THERAPEUTIC EXERCISES TO DEVELOP STRENGTH AND ENDURANCE, RANGE OF MOTION AND FLEXIBILITY 2011 [facility] THERAPEUTIC PROCEDURE, 1 OR MORE AREAS, EACH 15 MINUTES; THERAPEUTIC EXERCISES TO DEVELOP STRENGTH AND ENDURANCE, RANGE OF MOTION AND FLEXIBILITY 2011 [facility] THERAPEUTIC PROCEDURE, 1 OR MORE AREAS, EACH 15 MINUTES; THERAPEUTIC EXERCISES TO DEVELOP STRENGTH AND ENDURANCE, RANGE OF MOTION AND FLEXIBILITY 2011 [facility] THERAPEUTIC PROCEDURE, 1 OR MORE AREAS, EACH 15 MINUTES; THERAPEUTIC EXERCISES TO DEVELOP STRENGTH AND ENDURANCE, RANGE OF MOTION AND FLEXIBILITY 2011 [facility] THERAPEUTIC PROCEDURE, 1 OR MORE AREAS, EACH 15 MINUTES; THERAPEUTIC EXERCISES TO DEVELOP STRENGTH AND ENDURANCE, RANGE OF MOTION AND FLEXIBILITY 2011 [facility] THERAPEUTIC PROCEDURE, 1 OR MORE AREAS, EACH 15 MINUTES; THERAPEUTIC EXERCISES TO DEVELOP STRENGTH AND ENDURANCE, RANGE OF MOTION AND FLEXIBILITY 2011 [facility] PHYSICAL THERAPY RE-EVALUATION 2011 [facility] TOBACCO USE CESSATION INTERVENTION, COUNSELING (COPD, CAP, CAD, ASTHMA) (DM) (PV) 2011 [facility] PHYS/OTH QUALIFIED HEALTH MARKETING ENGINEER QUALIFIED,EDUCATION, TRAIN,LICENSURE/REGU LATION (WHEN APPLICABLE) EDUC SER RENDERED TO PATS IN A GRP SETTING (EG,,OBESITY ,OR DIABETIC INSTRUCT) 2011 [facility] APPLICATION OF A MODALITY TO 1 OR MORE AREAS; ELECTRICAL STIMULATION (UNATTENDED) 2011 [facility] APPLICATION OF A MODALITY TO 1 OR MORE AREAS; ELECTRICAL STIMULATION (UNATTENDED) 2011 [facility] APPLICATION OF A MODALITY TO 1 OR MORE AREAS; HOT OR COLD PACKS 2011 [facility] APPLICATION OF A MODALITY TO 1 OR MORE AREAS; ELECTRICAL STIMULATION (MANUAL), EACH [address] [facility] THERAPEUTIC PROCEDURE, 1 OR MORE AREAS, EACH 15 MINUTES; THERAPEUTIC EXERCISES TO DEVELOP STRENGTH AND ENDURANCE, RANGE OF MOTION AND FLEXIBILITY 2011 [facility] THERAPEUTIC PROCEDURE, 1 OR MORE AREAS, EACH 15 MINUTES; THERAPEUTIC EXERCISES TO DEVELOP STRENGTH AND ENDURANCE, RANGE OF MOTION AND FLEXIBILITY 2011 [facility] PHYSICAL THERAPY EVALUATION 2011 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 ELECTROCARDIOGRAM, ROUTINE ECG WITH AT LEAST 12 LEADS; TRACING ONLY, WITHOUT INTERPRETATION AND REPORT 2010 [facility] Patient education, not otherwise cla ified, non-physician provider, group, per se ion [address] [facility] Audiometry Group Testing Audiometry Group Testing [address] [facility] Patient education, not otherwise cla ified, non-physician provider, group, per se ion [address] [facility] Audiometry Group Testing Audiometry Group Testing [address] [facility] Immunization Administration One Vaccine Immunization Administration One Vaccine 964[address] [facility] Injection, triamcinolone acetonide, not otherwise specified, 10 mg [address] [facility] Fluoroscopy Fluoroscopy 52580 2013 TYLOR AVELAR The procedure followed the Hal[place] Protocol for Preventing Wrong Site, Wrong Procedure, Wrong Person Surgery in the following manner:~ [X] Pre-operative verification Process: All relevant documents and studies were available prior to the start of the procedure. Missing information will be addressed below and was discussed with the patient or guardian.~ [x] The intended site was marked by the Provider performing the procedure and was visible to the operative team after the area was prepped and draped. The site marking was done with the involvement of the patient or guardian. Therefore the patient had not received any sedation prior to the marking. The marking was done with the Provider's Initials.~ [X] A Time Out was performed in the following manner:~ [X] Patient was identified using two patient identifiers: name and date of .~ [X] Staff nurse or Mechanical Oxidizer verified the procedure and marking with the patient, consent, and Progress Note. The time-Out was done in the same location as the procedure. ~ [] A site marking was not required because: (ie pt refused, midline structure).~ [] A site marking was not required as there was a single obvious wound or lesion that is the site of the intended procedure.~ [] This procedure was performed in an emergent fashion and so marking the site was not necessary, although the time-out to verify the correct patient, procedure, and site was performed.~ DoD Spinal Anesthesia Epidural Caudal, Single Spinal Anesthesia Epidural Caudal, Single 65892 2013 AVELAR, TYLOR R Procedure Note: Informed consent was obtained. The patient was positioned in prone position. The patient was then prepped and draped in a sterile fashion. There skin was no evidence of infection at the site of needle insertion. The skin was then anesthetized with 1% lidocaine. The epidural needle was inserted into the caudal space. Epidurogram confirmed placement, SF (was not) aspirated, blood (was not) aspirated, paresthesia (was not) noted. Preservative free solutions were utilized. The patient tolerated the procedure without complications. The patient was observed for 30 minutes and was then released with post-procedure instructions. Fluoroscopic guidance (was) used. Contrast (was) used to confirm epidural spread. Needle Type:22g B-bevel Drug Dose: 80 mg triamcinolone Diluting Solution: 0.5% bupivicaine x 1.0ml, 2% lidocaine 1ml NS x 2 ml For final volume of 6ml with 80mg triamcinolone [facility] Psychiatric Evaluation Comprehensive Examination Interactive Psychiatric Evaluation Comprehensive Examination Interactive [address] [facility] Psychometric Neuropsych Testing Battery Admin By Computer Psychometric Neuropsych Testing Battery Admin By Computer [address] [facility] Audiogram (Screening) Audiogram (Screening) [address] [facility] Patient education, not otherwise cla ified, non-physician provider, group, per se ion [address] [facility] Osteopathic Manip Treatment (OMT) 3-4 Body Regions Involved Osteopathic Manip Treatment (OMT) 3-4 Body Regions Involved 77726 2012 LALO PHILLIPS Osteopathic Manip Treatment (OMT) 3-4 Body Regions Involved Osteopathic Manip Treatment (OMT) 3-4 Body Regions Involved [address] [facility] Spectacles Services Fitting Monofocals (Not For Aphakia) Spectacles Services Fitting Monofocals (Not For Aphakia) 32083 2012 LEONARD JOEL Determination Of Refractive State Determination Of Refractive State 94935 2012 LEONARD JOEL Ophthalmological New Patient Start Comprehensive Care Ophthalmological New Patient Start Comprehensive Care 95810 2012 LEONARD JOEL Physical Medicine Physical Therapy Re-Evaluation Physical Medicine Physical Therapy Re-Evaluation [address] [facility] Traction Pelvic Traction Pelvic 39988 [address] [facility] Physical Therapy: ___ Se ion Segments, 15 Minutes Each Physical Therapy: ___ Session Segments, 15 Minutes Each 03364 [address] [facility] Physical Medicine - Group Physical Therapy Se ion Physical Medicine - Group Physical Therapy Session 22417 [address] [facility] Traction Pelvic Traction Pelvic [address] [facility] Physical Medicine - Group Physical Therapy Se ion Physical Medicine - Group Physical Therapy Session [address] [facility] Physical Therapy: ___ Se ion Segments, 15 Minutes Each Physical Therapy: ___ Session Segments, 15 Minutes Each [address] [facility] Traction Pelvic Traction Pelvic [address] [facility] Physical Medicine - Group Physical Therapy Se ion Physical Medicine - Group Physical Therapy Session [address] [facility] Physical Therapy: ___ Se ion Segments, 15 Minutes Each Physical Therapy: ___ Session Segments, 15 Minutes Each [address] [facility] Traction Pelvic Traction Pelvic 59188 [address] [facility] Physical Therapy: ___ Se ion Segments, 15 Minutes Each Physical Therapy: ___ Session Segments, 15 Minutes Each 37823 [address] [facility] Physical Medicine - Group Physical Therapy Se ion Physical Medicine - Group Physical Therapy Session 69232 [address] [facility] Traction Pelvic Traction Pelvic 00638 2011 SANTOS DOMINGUEZ Physical Therapy: ___ Se ion Segments, 15 Minutes Each Physical Therapy: ___ Session Segments, 15 Minutes Each 72409 2011 SANTOS DOMINGUEZ Spinal Anesthesia Epidural Caudal, Single 2011 TYLOR AVELAR Procedure Note: Informed consent was obtained. The patient was positioned in prone position. The patient was then prepped and draped in a sterile fashion. There skin was no evidence of infection at the site of needle insertion. The skin was then anesthetized with 1% lidocaine. The epidural needle was inserted into the caudal space. Epidurogram confirmed placement, SF (was not) aspirated, blood (was not) aspirated, paresthesia (was not) noted. Preservative free solutions were utilized. The patient tolerated the procedure without complications. The patient was observed for 30 minutes and was then released with post-procedure instructions. Fluoroscopic guidance (was) used. Contrast (was) used to confirm epidural spread. Needle Type:22g B-bevel Drug Dose: 80 mg triamcinolone Diluting Solution: 0.5% bupivicaine x 1.0ml, 2% lidocaine 1ml NS x 2 ml For final volume of 6ml with 80mg triamcinolone Ramón Physical Therapy: ___ Se ion Segments, 15 Minutes Each Physical Therapy: ___ Session Segments, 15 Minutes Each 32927 2011 AZALEA CALLAHAN 8 min to teach prone press-ups and complete 10. [facility] Physical Medicine Physical Therapy Evaluation Physical Medicine Physical Therapy Evaluation [address] [facility] Screening Test Of Visual Acuity, Quantitative, Bilateral Screening Test Of Visual Acuity, Quantitative, Bilateral 30649 [address] [facility] Physical Medicine Physical Therapy Re-Evaluation Physical Medicine Physical Therapy Re-Evaluation [address] [facility] Physical Therapy: ___ Se ion Segments, 15 Minutes Each Physical Therapy: ___ Session Segments, 15 Minutes Each 63028 [address] [facility] Physical Therapy: ___ Se ion Segments, 15 Minutes Each Physical Therapy: ___ Session Segments, 15 Minutes Each [address] [facility] Physical Medicine - Group Physical Therapy Se ion Physical Medicine - Group Physical Therapy Session [address] [facility] Physical Therapy: ___ Se ion Segments, 15 Minutes Each Physical Therapy: ___ Session Segments, 15 Minutes Each 39488 [address] [facility] Physical Therapy: ___ Se ion Segments, 15 Minutes Each Physical Therapy: ___ Session Segments, 15 Minutes Each 48327 [address] [facility] Physical Therapy: ___ Se ion Segments, 15 Minutes Each Physical Therapy: ___ Session Segments, 15 Minutes Each 79693 [address] [facility] Physical Therapy: ___ Se ion Segments, 15 Minutes Each Physical Therapy: ___ Session Segments, 15 Minutes Each 15267 [address] [facility] Physical Medicine Physical Therapy Re-Evaluation Physical Medicine Physical Therapy Re-Evaluation [address] [facility] Intervention And Counseling On Ce ation Of Tobacco Use Intervention And Counseling On Cessation Of Tobacco Use 4000F 2011 [place] current smoker current smoker 1034F [address] [facility] -Supervised Group Educational Services [address] [facility] Modalities Electrical Stimulation Unattended Modalities Electrical Stimulation Unattended 50806 2011 SVEN OHARA A 15 min. W/ cold pack [facility] Modalities Cryotherapy Cold Packs Modalities Cryotherapy Cold Packs 98210 2011 SVEN OHARA A 15 min. W/ e-stim [facility] Physical Therapy: ___ Se ion Segments, 15 Minutes Each Physical Therapy: ___ Session Segments, 15 Minutes Each 64083 2011 SVEN OHARA A 10 min. DoD Modalities Electrical Stimulation Unattended Modalities Electrical Stimulation Unattended 88431 2011 CARMELO OHARAINE A 15 min. W/ MHP [facility] Modalities Heat Hot Packs Modalities Heat Hot Packs 81913 2011 SVEN OHARA A 15 min. W/ e-stim [facility] Physical Therapy: ___ Se ion Segments, 15 Minutes Each Physical Therapy: ___ Session Segments, 15 Minutes Each 28034 2011 SVEN OHARA A 53 min. DoD Modalities Cryotherapy Cold Packs Modalities Cryotherapy Cold Packs [address] [facility] Modalities Electrical Stimulation Modalities Electrical Stimulation 82696 2011 MAKI GRAJEDA Physical Medicine - Group Physical Therapy Se ion Physical Medicine - Group Physical Therapy Session [address] [facility] Physical Therapy: ___ Se ion Segments, 15 Minutes Each Physical Therapy: ___ Session Segments, 15 Minutes Each [address] [facility] Modalities Heat Hot Packs Modalities Heat Hot Packs 35688 2011 SANTOS DOMINGUEZ Modalities Electrical Stimulation Modalities Electrical Stimulation 36755 2011 SANTOS DOMINGUEZ Modalities Cryotherapy Cold Packs Modalities Cryotherapy Cold Packs 24633 2011 SANTOS DOMINGUEZ Physical Therapy: ___ Se ion Segments, 15 Minutes Each Physical Therapy: ___ Session Segments, 15 Minutes Each 55648 2011 SANTOS DOMINGUEZ Physical Therapy: ___ Se ion Segments, 15 Minutes Each Physical Therapy: ___ Session Segments, 15 Minutes Each 98499 [address] [facility] Physical Therapy: ___ Se ion Segments, 15 Minutes Each Physical Therapy: ___ Session Segments, 15 Minutes Each 48202 2011 NAHUM JOHNS [address] [facility] Physical Medicine Physical Therapy Evaluation Physical Medicine Physical Therapy Evaluation [address] [facility] -Supervised Group Educational Services [address] [facility] Audiometry Group Testing Audiometry Group Testing [address] [facility] Screening Test Of Visual Acuity, Quantitative, Bilateral Screening Test Of Visual Acuity, Quantitative, Bilateral [address] [facility] ECG Performance of Tracing Only ECG Performance of Tracing Only [address] [facility] Immunization Administration Each Additional Vaccine [address] [facility] Immunization Administration One Vaccine Immunization Administration One Vaccine 09428 2010 JAZMÍN MUNIZ Collection and preparation of saliva sample for laboratory diagnostic testing [address] [facility] Screening to determine the appropriatene of consideration of an individual for participation in a specified program, project or treatment protocol, per encounter [address] [facility] Supervised Injection Intramuscular Antibiotic Supervised Injection Intramuscular Antibiotic [id number] [facility] Oral medication administration, direct observation 2010 [facility] Oral medication administration, direct observation 2009 [facility] Oral medication administration, direct observation 2009 [facility] Oral medication administration, direct observation 2009 [facility] Visual Function Screening Visual Function Screening [id number] [facility] Social History Combined list of available smoking, tobacco, and other social history from Department of Defense and Veterans Affairs facilities. Social History Type Response Date Comment Sour e Tobacco smoking status NHIS [place]-[facility]ACCO FORMER USER 05/27/2023 [facility] History of tobacco use VA-TOBACCO QUIT 5 TO < 15 YRS 05/27/2023 [facility] History of tobacco use [place]-TOBACCO FORMER USER 05/22/2022 [facility] History of tobacco use [place] FORMER USER 05/23/2021 [facility] [place] of tobacco use [place] FOR[place] US[place] 04/11/2020 [facility] This section is an empty social history section. [facility] Plan of Care List of future care activities from Department of Veterans Affairs facilities. Additional future care activities may be listed in the Assessment and Plan section. Date/Time Care Activity Care Activity Detail Facili ty 12/01/2024 AMBULATORY - NONE AMBULATORY - NONE [facility]
--- OUTSIDE RECORDS SUMMARY | 2024-11-10 10:13 | XMS_ITS | Clinical Summary ---
Author Organization [facility] Address [address] [place] [address] Care Team Providers Care Weed Cutter Name Role Phone Jasmine Garza MD Primary Care Provider [phone] Allergies Active Allergy Reactions Criticality Noted Date [...] on file Legal Sex Male 8:20 AM GAME DEVELOPER Gender Identity Male 01/27/2022 2:03 PM CDT Sexual Orientation Straight 01/27/2022 2: 03 PM CDT Obstetrics History Last Filed Vital Signs Vital Sign Reading Time Taken Comments Blood Pressure 141/63 05/22/2022 4:44 PM GAME DEVELOPER Pulse 74 05/22/2022 4:44 PM GAME DEVELOPER Temperature 36.6 C (97.8 F) 05/22/2022 3:28 PM GAME DEVELOPER Respiratory Rate 18 05/22/2022 4:44 PM GAME DEVELOPER Oxygen Saturation 96% 05/22/2022 4:44 PM GAME DEVELOPER Inhaled Oxygen Concentration - - Weight 84 kg (185 lb 3 oz) 03/30/2022 9:20 PM CS T Height 162.6 cm (5' 4) 03/30/2022 9:20 PM GAME DEVELOPER Body Mass Index 31.79 03/30/2022 9:20 PM GAME DEVELOPER Plan of Treatment Health Maintenance Due [...] Chronic Care Management No change(05/22 3:29 PM GAME DEVELOPER) Carol Mckay, [place] Note: Problem: Chronic Pain Goals: 1. Minimize further functional decline 2. Maximize quality of life 3. Control pain Strategies: - Activity/exercise program recommendation - Conservative stepwise pain medicine strategy with multi-disciplinary approach - Recommend healthy lifestyle strategies and compensatory methods as needed Insurance [facility] OFF[facility] COMM C[facility] Care Teams Weed Cutter Relationship Specialty Start Date End Date Jasmine Garza MD PCP - General Physical Medicine and Rehabilitation 01/06/22
--- OUTSIDE RECORDS SUMMARY | 2024-11-10 10:14 | XMS_ITS | Clinical Summary ---
Author Organization [facility] Address [address] [place] [address] Care Team Providers Care Core Loader Name Role Phone Gianluca Davila MD Primary Care Provider [phone] Source Comments [facility],non[facility] Affiliates and Associated Physician Practices is amultiple site organization consisting of ambulatory clinics and hospital sitesin [place], [place], [place] and [place]. This disclosure is being madepursuant to the Care Everywhere program and may not contain all information available regarding this patient. Last updated 17.[facility] Allergies Active Allergy Reactions Criticality Noted Date [...] patient's age to complete [place] [address] [facility] Care Teams Core Loader Relationship Specialty Start Date End Date Gianluca Davila MD [address] [place], [place] [id number] PCP - General Family Medicine 09/30/18
== END ==
PROVIDERS: PCP Nurse Practitioner Family; Visit Provider Nurse Practitioner Family
DX: M25.562 Pain in left knee (principal)
CPT/HCPCS: 73564

== ENCOUNTER 2025-02-18 16:38 | Emergency (ER) | payer OTHER, SELFPAY ==
--- NOTE | 2025-02-18 16:39 | ED.EYEPROB ---
HPI - Eye Problem General Chief complaint: Eye Problems Stated complaint: LT Eye Problem Time Seen by Provider: 02/18/25 16:39 Source: patient Mode of arrival: ambulatory Limitations: no limitations History of Present Illness HPI Narrative: Ryne is a 34 year old female patient presenting to the clinic today with c/o left eye watering, itching, possible foreign body. He reports was cutting up wood and burning and is concerned that he may have some wood or raymond in his left eye. Symptoms began 1 hour ago. Denies any eye injury. Related Data Home Medications ?Medication ?Instructions ?Recorded ?Confirmed ?Last Taken ?Type acetaminophen 650 mg PO Q4-6H PRN pain 06/18/23 01/19/25 Unknown History vitamin B complex 1 tablet PO DAILY 06/18/23 01/19/25 Unknown History cholecalciferol (vitamin D3) 1,000 unit PO DAILY 06/22/24 01/19/25 Unknown History methocarbamol 2 tablet PO QID PRN pain 06/22/24 01/19/25 Unknown History Allergies Allergy/AdvReac Type Severity Reaction Status Date / Time amoxicillin Allergy Severe Swelling Verified 02/18/25 16:57 of Lip/Tongue/Throat Penicillins Allergy Severe Swelling Verified 02/18/25 16:57 of Lip/Tongue/Throat Review of Systems Review of Systems: Pertinent positives per HPI. Patient denies any fever, chills, rash, headache, dizziness, cough, runny nose, sore throat, shortness of breath, chest pain, palpitations, nausea, vomiting, diarrhea, constipation, abdominal pain, or any urinary issues. [facility] Past Medical History Medical History Intermittent chest pain Abnormal thermography Liberty disease Left knee pain Localized swelling, mass and lump, left lower limb Enlarged tonsils Acute bronchitis Mild obstructive sleep apnea Chronic pain Sleep apnea Arthritis Surgical History Surgical History History of nasal surgery Hx of vasectomy 06/17/23 Family History Family History Father Heart disease Grandparent Heart disease Social History Social History Social History: Caffeine-daily Smoking packs per day: 0.5 Smoking cigarettes per day: 10.0 Years smoked: 5 Smoking pack-years: 2.50 Smoking status: Former smoker Tobacco type: cigarettes Smokeless tobacco user: chewing tobacco Second hand tobacco smoke exposure: No Smoking end date: 04/06/13 Alcohol intake: current Alcohol use details: rarely Substance use: never Substance use type: does not use Do You Feel Safe in your Home?: Yes Lack of Transportation: No Lack of Food: Never True Current Housing: I Have Housing Concerned About Future Housing: No Difficulty Paying Gas/Electric Bills: No Difficulty Paying for Meds: No Currently Unemployed: No Education: Associate Degree Difficulty w/ Childcare or Family Care: No Living arrangements: with family Spiritual care concerns: No Comments At the time of my signature, I reviewed and agree with the nursing past medical, surgical, social, and family history. There is no relevant family history pertinent to the patient complaint. Exam Narrative: General: Well-developed, well nourished, in no apparent distress Head: Normocephalic, atraumatic Eyes: Pupils equally round and reactive to light bilaterally, EOM intact, right sclera and conjunctive clear, no discharge, lids normal, left sclera and conjunctiva injected with watery discharge coming from the left eye, eye exam/harris lamp exam performed. Ears: TMs intact and clear, ear canals clear, no drainage, grossly hearing normal. Nose: Nares patent, no discharge, no inflammation, no sinus tenderness. Mouth: Oropharynx without lesions or masses, good dentition, MMM. Neck: Supple, trachea midline, no enlargement of anterior or posterior cervical nodes, no thyroid masses or goiter palpable. Cardio: Regular rate and rhythm, s1 and s2 normal, no murmur appreciated. Resp: Clear to auscultation bilaterally anteriorly and posteriorly, no rhonchi, rales, wheezing or rubs Course Course Emergency Course: Portions of this record may have been created with voice recognition software. Level of Care: Express Care Visit Vital Signs Vital signs: Vital Signs Temperature 36.8 C 02/18/25 16:47 Pulse Rate 110 H 02/18/25 16:47 Respiratory Rate 20 02/18/25 16:47 Blood Pressure 115/74 02/18/25 16:47 Pulse Oximetry 98 02/18/25 16:47 Oxygen Delivery Room Air 02/18/25 16:47 Temperature 36.8 C 02/18/25 16:47 Pulse Rate 110 H 02/18/25 16:47 Respiratory Rate 20 02/18/25 16:47 Blood Pressure 115/74 02/18/25 16:47 Pulse Oximetry 98 02/18/25 16:47 Oxygen Delivery Room Air 02/18/25 16:47 Vital signs reviewed MDM - Eye Problem MDM Narrative Medical decision making narrative: At the time of visit patient is resting comfortably on the exam table. Patient appears to be nontoxic. C/o left eye watering, itching, possible foreign body. He reports was cutting up wood and burning and is concerned that he may have some wood or raymond in his left eye. Symptoms began 1 hour ago. Denies any eye injury. Wears glasses. On exam patient has injected left sclera and conjunctiva with watery discharge. No obvious foreign body seen. Harris lamp exam ordered. Procedures: 2 drops of topical tetracaine anesthetic was instilled with good anesthesia. Fluorescein stain of the left eye was performed without uptake of dye. No epithelial defect was noted. No ulcer or dendritic lesions. Upper lid was everted and dirt FB was removed using a wet sterile NS q-tip. No lesions were noted. NO Carley sign. Normal saline irrigation eye solution was performed and the patient tolerated the procedure well, no adverse reaction or complications. Noted visual acuity Plan: I suspect patient had foreign body to the left eye with eye irritation. Will send in prescription for tobramycin to cover for secondary infection. No obvious corneal abrasion was noted in the clinic today. Supportive measures were discussed with the patient and they voiced understanding discharge instructions and agrees to treatment plan. Return precautions reviewed Differential Diagnosis Differential diagnosis: Likely corneal abrasion, conjunctivitis, acute iritis, hyphema, periorbital cellulitis, subconjunctival hemorrhage, glaucoma, corneal ulcer and ruptured globe Discharge Plan Discharge Clinical Impression: Irritation of left eye Foreign body in eye Qualifiers: Encounter type: initial encounter Laterality: left Qualified Code(s): T15.92XA - Foreign body on external eye, part unspecified, left eye, initial encounter Patient Disposition: Home Condition: Stable Instructions: Antibiotic Form, Eye Foreign Body (ED), Eye Pain (ED) Additional Instructions: Practice good hand washing techniques Avoid touching eyes Instill eyedrops as prescribed-tobramycin May use warm moist washcloth to help remove eye discharge If eyes are matted shut-do not pry eyes open-use a warm moist cloth to loosen matting and wipe matter away from eye May take Tylenol/Motrin as needed for pain or fever May take Benadryl as needed for itching Follow-up with your PCP in 3-5 days if symptoms persist or sooner if they worsen Go to the emergency room if you develop any fever that is not controlled by Tylenol or Motrin, loss of vision, eye pain, increase eye swelling,visual changes, headache, confusion, lethargy, weakness, chest pain, or shortness of breath. Patient Language: Yakut Prescriptions: New tobramycin 0.3 % drops 1 drp LEFT EYE Q4H 7 Days Qty: 5 0RF No Action vitamin B complex 1 tablet PO DAILY acetaminophen 650 mg PO Q4-6H PRN (Reason: pain) methocarbamol 2 tablet PO QID PRN (Reason: pain) Patient Comments: muscle relaxer cholecalciferol (vitamin D3) 1,000 unit PO DAILY Follow-up/Referrals: Ruma Menezes APRN [Primary Care Provider, [facility]] Time of Disposition: 16:58 Quality NIHSS Nursing Documentation ED NIHSS nursing documentation: reviewed/agree
--- OUTSIDE RECORDS SUMMARY | 2025-02-18 16:41 | XMS_ITS | Clinical Summary ---
Author Organization [facility] Address [address] [place] [address] Care Team Providers Care Electrician Control Equipment Name Role Phone Jasmine Garza MD Primary Care Provider [phone] Allergies Active Allergy Reactions Criticality Noted Date [...] on file Legal Sex Male 8:20 AM EVENT OPERATIONS MANAGER Gender Identity Male 01/27/2022 2:03 PM CDT Sexual Orientation Straight 01/27/2022 2: 03 PM CDT Last Filed Vital Signs Vital Sign Reading Time Taken Comments Blood Pressure 141/63 05/22/2022 4:44 PM EVENT OPERATIONS MANAGER Pulse 74 05/22/2022 4:44 PM EVENT OPERATIONS MANAGER Temperature 36.6 C (97.8 F) 05/22/2022 3:28 PM EVENT OPERATIONS MANAGER Respiratory Rate 18 05/22/2022 4:44 PM EVENT OPERATIONS MANAGER Oxygen Saturation 96% 05/22/2022 4:44 PM EVENT OPERATIONS MANAGER Inhaled Oxygen Concentration - - Weight 84 kg (185 lb 3 oz) 03/30/2022 9:20 PM CS T Height 162.6 cm (5' 4) 03/30/2022 9:20 PM EVENT OPERATIONS MANAGER Body Mass Index 31.79 03/30/2022 9:20 PM EVENT OPERATIONS MANAGER Plan of Treatment Health Maintenance Due Date Last Done Comments Depression Screening 1990 Hepatitis C Screening 1990 Varicella Vaccines (1 of 2 - 13+ 2-dose series) 09/14/2003 Hepatitis B Screening 2008 Regular Well Visit/Exam 18-64 2008 HPV Vaccines (1 - 3-dose SCD M series) 2017 Covid-19 Vaccine (3 - 2024-2 6 season) 2024 11/27/2020, 11/03/2020 Influenza Vaccine (#1) 2024 01/13/2018 DTaP/Tdap/Td Vaccine (2 - Td or Tdap) 10/25/2030 10/25/2020 Pneumococcal vaccine <65 Aged Out No longer eligible based on patient's age to complete this topic Goals Goal Patient Goal Type Associated Problems Recent Progress Patient-Stated? Author CCM Chronic Pain Care Plan Chronic Care Management No change(02/16 /2023 3:29 PM EVENT OPERATIONS MANAGER) Carol Mckay, P[place] Note: Problem: Chronic Pain Goals: 1. Minimize further functional decline 2. Maximize quality of life 3. Control pain Strategies: - Activity/exercise program recommendation - Conservative stepwise pain medicine strategy with multi-disciplinary approach - Recommend healthy lifestyle strategies and compensatory methods as needed Insurance [facility] OFF[facility] COMM C[facility] Care Teams Electrician Control Equipment Relationship Specialty Start Date End Date Jasmine Garza MD PCP - General Physical Medicine and Rehabilitation 01/06/22
[2025-02-18 16:47] VITALS: BP 115/74; PULSE 110; RESP 20; TEMP 36.8; O2SAT 98
== END 2025-02-18 17:00 | disposition home or self-care (01) ==
PROVIDERS: Emergency Provider Nurse Practitioner Family; PCP Nurse Practitioner Family
DX: T15.92XA Foreign body on external eye, part unspecified, left eye, initial encounter (principal); F17.210 Nicotine dependence, cigarettes, uncomplicated; W44.F0XA Objects of natural or organic material unspecified, entering into or through a natural orifice, initial encounter
CPT/HCPCS: 99213; A9270; G0463

== ENCOUNTER 2025-03-28 14:40 | Outpatient (CLI) | payer OTHER, SELFPAY ==
--- NOTE | ~2025-03-28 | MR_ITS ---
EXAMINATION: MR knee LT wo con DATE: 03/28/2025 15:10 INDICATION: Left knee injury with lateral meniscal tear and several years of generalized left knee pain and giving out. TECHNIQUE: Magnetic resonance imaging (MRI) of the left knee was performed without intravenous contrast. Sequences included coronal PD-weighted FSE, coronal PD-weighted FS FSE, sagittal T2-weighted FSE, sagittal PD-weighted FS FSE and axial PD weighted fat saturated FSE. COMPARISON: None. FINDINGS: Medial compartment: Medial meniscus is normal. Articular cartilage is normal. Lateral compartment: Lateral meniscus is normal. Articular cartilage is normal. Patellofemoral compartment: Partial-thickness chondral fissure involving greater than 50% the cartilage thickness but without degenerative subchondral changes at the central aspect of the medial patellar facet. Remaining patellofemoral cartilage is normal. Ligaments and tendons: Anterior and posterior cruciate ligaments are normal. The medial collateral ligament and fibular collateral ligament complex are normal. The extensor mechanism is normal. The visualized medial and lateral hamstring tendons as well as the iliotibial band are normal. Fluid: Physiologic amount of fluid in the joint space. No loose osteochondral bodies identified. Osseous/other: Normal marrow signal. No fracture or pathologic marrow replacing process. IMPRESSION: 1. Partial-thickness chondral fissure at the medial patellar facet. Otherwise unremarkable left knee MRI with normal menisci and stabilizing ligaments. Reviewed, dictated and finalized at location A. [facility] PROC[facility] IMPRESSION: 1. Partial-thickness chondral fissure at the medial patellar facet. Otherwise u nremarkable left knee MRI with normal menisci and stabilizing ligaments.
== END 2025-03-28 14:41 | disposition home or self-care (01) ==
LOC: MICIMG 14:41
PROVIDERS: PCP Nurse Practitioner Family; Visit Provider Orthopaedic Surgery
DX: M22.42 Chondromalacia patellae, left knee (principal); S83.282A Other tear of lateral meniscus, current injury, left knee, initial encounter
CPT/HCPCS: 73721